=== PATIENT | female | born 1955 ===

== ENCOUNTER 2020-10-29 16:13 | Inpatient (IN) ==
[2020-10-29 17:26] LABS: Albumin 2.9 G/DL (3.4-5.0); Bilirubin,Total 0.4 MG/DL (0.20-1.00); Calcium 6.9 MG/DL (8.5-10.1); Osmolality,Calculated 338.3 MOS/KG (273-304); Total Protein 7.3 G/DL (6.4-8.2)
[2020-10-29 17:41] LABS: ABG Base Excess -17.3 MMOL/L (-2.5-2.5); ABG HCO3 11.6 MMOL/L (20-26); ABG Oxygen Saturation 97.3 % (95-100); ABG PH 7.272 (7.35-7.45); ABG TCO2 7.7 MMOL/L (23-27)
[2020-10-29 17:45] LABS: ABG PCO2 18.2 MM HG (35-48)
[2020-10-29 18:14] LABS: Ferritin 915.6 ng/ml (8-252)
[2020-10-29] MEDS ORDERED: ACETAMINOPHEN 325 MG TABLET PO PRN (18:53)
[2020-10-29] MEDS ORDERED: DEXTROSE 50% 25 GM/50 ML VIAL IV PRN ×2 (18:53)
[2020-10-29] MEDS ORDERED: GLUCAGON 1 MG VIAL IM PRN ×2 (18:53)
[2020-10-29] MEDS ORDERED: ONDANSETRON 4 MG/2 ML VIAL IV PRN (18:53)
[2020-10-29] MEDS ORDERED: SODIUM CHLORIDE 0.9% 500 ML IV STA (18:56)
[2020-10-29] MEDS ORDERED: AZITHROMYCIN INJ 500 MG in SODIUM CHLORIDE 0.9% 250 ML IV ONE (19:53)
[2020-10-29] MEDS ORDERED: MELATONIN 3 MG TABLET PO PRN (20:52)
[2020-10-29] MEDS ORDERED: INSULIN REGULAR 100 UNIT/ML SUBCUT SCH (21:00)
[2020-10-29] MEDS: HEPARIN 5,000 UNIT/1 ML VIAL SUBCUT SCH (23:20)
[2020-10-29] MEDS: FAMOTIDINE 20 MG TABLET PO SCH (23:20)
[2020-10-29] MEDS: ASCORBIC ACID 500 MG TABLET PO SCH (23:20)
[2020-10-29] MEDS: INSULIN REGULAR 100 UNIT/ML SUBCUT SCH (23:20)
[2020-10-29] MEDS: SODIUM BICARB INJ 50 MEQ in SODIUM CHLORIDE 0.45% 1,000 ML IV SCH (23:45)
[2020-10-29] MEDS: cefTRIAXone 1,000 MG in SODIUM CHLORIDE 0.9% 100 ML IV SCH (23:46)
[2020-10-30] MEDS: hydrALAZINE 20 MG/1 ML VIAL IV PRN ×2 (01:40→17:14)
[2020-10-30 05:32] LABS: Calcium 6.7 MG/DL (8.5-10.1); Osmolality,Calculated 341.8 MOS/KG (273-304); Potassium 4.8 MMOL/L (3.5-5.1)
[2020-10-30] MEDS: HEPARIN 5,000 UNIT/1 ML VIAL SUBCUT SCH ×3 (06:24→21:34)
[2020-10-30 07:39] LABS: Basophils % 0.1 % (0.0-0.8); Hematocrit 29.9 VOL% (35.7-47.0); Hemoglobin 9.9 GM/DL (12.0-16.0); Immature Granulocytes % 0.7 %; Immature Granulocytes Absolute 0.07 #; Lymphocytes # 1.3 10*3/uL (1.4-4.0); Lymphocytes % 13.3 % (21.3-54.2); Mean Corpuscular HGB Conc 33.1 GM/DL (32-36); Mean Corpuscular Volume 89.8 FL (87-102); Mean Platelet Volume 10.3 FL (9.6-12.0); Neutrophils % 77.9 % (38.7-73.9); Platelet Count 223 T/CUMM (130-400); Red Blood Count 3.33 MC/CUMM (3.8-5.5); Red Cell Distribution Width 14.6 % (9.3-17.3); White Blood Count 9.6 T/CUMM (4-12)
[2020-10-30 07:59] LABS: Band Neutrophils 2 % (0-10); Hypochromasia Slight; Lymphocytes 13 % (20-55); Microcytosis 1+; Ovalocytes Slight; Segmented Neutrophils 78 % (50-85); Total Cells Counted 100
[2020-10-30 08:00] LABS: Platelet Estimate Normal
[2020-10-30 08:01] LABS: ABG Base Excess -15.8 MMOL/L (-2.5-2.5); ABG HCO3 12.4 MMOL/L (20-26); ABG Oxygen Saturation 98.9 % (95-100); ABG PCO2 22.3 MM HG (35-48); ABG PH 7.262 (7.35-7.45); ABG TCO2 9.3 MMOL/L (23-27)
[2020-10-30] MEDS: INSULIN REGULAR 100 UNIT/ML SUBCUT SCH ×4 (08:04→21:41)
[2020-10-30 08:06] LABS: Albumin 2.6 G/DL (3.4-5.0); Bilirubin,Total 0.4 MG/DL (0.20-1.00); Calcium 6.6 MG/DL (8.5-10.1); Ferritin 785.7 ng/ml (8-252); Osmolality,Calculated 338.8 MOS/KG (273-304); Potassium 4.6 MMOL/L (3.5-5.1); Total Protein 6.7 G/DL (6.4-8.2)
[2020-10-30] MEDS: SODIUM BICARB INJ 50 MEQ in SODIUM CHLORIDE 0.45% 1,000 ML IV SCH ×3 (08:10→22:46)
[2020-10-30] MEDS ORDERED: PANTOPRAZOLE 40 MG TABLET PO SCH (09:00)
[2020-10-30] MEDS: ASCORBIC ACID 500 MG TABLET PO SCH ×2 (09:02→21:34)
[2020-10-30] MEDS: ZINC GLUCONATE 50 MG TABLET PO SCH (09:02)
[2020-10-30] MEDS: CHOLECALCIFEROL 1,000 UNIT TABLET PO SCH (09:02)
[2020-10-30] MEDS: CETIRIZINE 10 MG TABLET PO SCH (09:02)
[2020-10-30] MEDS ORDERED: SODIUM CHLORIDE 0.9% 1,000 ML IV ONE ×2 (09:18→10:55)
[2020-10-30] MEDS: INSULIN GLARGINE 100 UNIT/ML SUBCUT SCH (10:37)
[2020-10-30 13:27] LABS: Osmolality,Calculated 338.4 MOS/KG (273-304); Potassium 4.4 MMOL/L (3.5-5.1)
[2020-10-30] MEDS ORDERED: MAGNESIUM SULF RIDER 4 GM/100 ML PREMIX IV PRN (13:51)
[2020-10-30] MEDS ORDERED: MAGNESIUM SULF RIDER 2 GM/50 ML PREMIX IV PRN (13:51)
[2020-10-30] MEDS ORDERED: CALCIUM GLUCONATE 1,000 MG in SODIUM CHLORIDE 0.9% 100 ML IV ONE (13:56)
[2020-10-30] MEDS: FAMOTIDINE 20 MG TABLET PO SCH ×2 (14:35→21:34)
[2020-10-30] MEDS: IVERMECTIN 3 MG TABLET PO SCH (14:35)
[2020-10-30 17:40] LABS: Calcium 6.1 MG/DL (8.5-10.1); Osmolality,Calculated 331.7 MOS/KG (273-304); Potassium 4.3 MMOL/L (3.5-5.1)
[2020-10-30] MEDS: cefTRIAXone 1,000 MG in SODIUM CHLORIDE 0.9% 100 ML IV SCH (21:31)
[2020-10-30 21:32] LABS: Calcium 6.3 MG/DL (8.5-10.1); Osmolality,Calculated 335.4 MOS/KG (273-304); Potassium 4.3 MMOL/L (3.5-5.1)
[2020-10-31] MEDS: INSULIN REGULAR 100 UNIT/ML SUBCUT SCH ×4 (00:09→17:38)
[2020-10-31 01:33] LABS: Basophils % 0.1 % (0.0-0.8); Hemoglobin 9.3 GM/DL (12.0-16.0); Immature Granulocytes % 1.4 %; Immature Granulocytes Absolute 0.15 #; Lymphocytes # 1.4 10*3/uL (1.4-4.0); Lymphocytes % 13.2 % (21.3-54.2); Mean Corpuscular HGB Conc 32.1 GM/DL (32-36); Mean Corpuscular Volume 92.1 FL (87-102); Mean Platelet Volume 10.2 FL (9.6-12.0); Monocytes % 6.5 % (1.7-12.7); Neutrophils % 78.8 % (38.7-73.9); Platelet Count 221 T/CUMM (130-400); Red Blood Count 3.15 MC/CUMM (3.8-5.5); Red Cell Distribution Width 14.6 % (9.3-17.3); White Blood Count 10.6 T/CUMM (4-12)
[2020-10-31 01:52] LABS: Calcium 6.4 MG/DL (8.5-10.1); Osmolality,Calculated 328.1 MOS/KG (273-304); Potassium 4.2 MMOL/L (3.5-5.1)
[2020-10-31 01:56] LABS: Ferritin 731.3 ng/ml (8-252)
[2020-10-31] MEDS: ALBUTEROL INHALER 18 GM INH SCH ×4 (02:30→19:45)
[2020-10-31 02:51] LABS: ABG Base Excess -15.4 MMOL/L (-2.5-2.5); ABG HCO3 12.5 MMOL/L (20-26); ABG Oxygen Saturation 91.3 % (95-100); ABG PH 7.274 (7.35-7.45); ABG PO2 71.1 MM HG (80-95); ABG TCO2 9.5 MMOL/L (23-27)
[2020-10-31] MEDS: HEPARIN 5,000 UNIT/1 ML VIAL SUBCUT SCH (06:36)
[2020-10-31 07:07] LABS: Calcium 6.3 MG/DL (8.5-10.1); Osmolality,Calculated 338.4 MOS/KG (273-304); Potassium 4.1 MMOL/L (3.5-5.1)
[2020-10-31] MEDS ORDERED: SODIUM BICARBONATE 50 MEQ/50 ML SYRINGE IV ONE (08:31)
[2020-10-31] MEDS ORDERED: amLODIPine 5 MG TABLET PO SCH (09:00)
[2020-10-31] MEDS: INSULIN GLARGINE 100 UNIT/ML SUBCUT SCH (09:36)
[2020-10-31] MEDS ORDERED: LORazepam 2 MG/1 ML VIAL IV ONE (10:00)
[2020-10-31] MEDS: IVERMECTIN 3 MG TABLET PO SCH (10:36)
[2020-10-31] MEDS: FAMOTIDINE 20 MG TABLET PO SCH (10:36)
[2020-10-31] MEDS: CETIRIZINE 10 MG TABLET PO SCH (10:37)
[2020-10-31] MEDS: SODIUM BICARB INJ 50 MEQ in SODIUM CHLORIDE 0.45% 1,000 ML IV SCH (10:37)
[2020-10-31] MEDS: CHOLECALCIFEROL 1,000 UNIT TABLET PO SCH (10:37)
[2020-10-31] MEDS: ASCORBIC ACID 500 MG TABLET PO SCH ×2 (10:37→20:23)
[2020-10-31] MEDS: ZINC GLUCONATE 50 MG TABLET PO SCH (10:37)
[2020-10-31] MEDS ORDERED: FUROSEMIDE 40 MG/4 ML VIAL ONE (12:16)
[2020-10-31] MEDS ORDERED: FUROSEMIDE 40 MG/4 ML VIAL IV ONE (12:20)
[2020-10-31] MEDS ORDERED: MORPHINE 2 MG/1 ML SYRINGE ONE (12:25)
[2020-10-31] MEDS ORDERED: MORPHINE 2 MG/1 ML SYRINGE IV ONE (12:38)
[2020-10-31] MEDS ORDERED: METOPROLOL TARTRATE 5 MG/5 ML VIAL IV ONE ×2 (12:39→12:45)
[2020-10-31] MEDS ORDERED: SODIUM BICARBONATE 50 MEQ/50 ML VIAL IV ONE (12:40)
[2020-10-31 12:47] LABS: ABG Base Excess -17.3 MMOL/L (-2.5-2.5); ABG HCO3 11.4 MMOL/L (20-26); ABG Oxygen Saturation 96.6 % (95-100); ABG PCO2 26.6 MM HG (35-48); ABG TCO2 9.4 MMOL/L (23-27)
[2020-10-31 12:48] LABS: ABG PH 7.183 (7.35-7.45)
[2020-10-31 13:06] LABS: Basophils % 0.1 % (0.0-0.8); Hematocrit 28.1 VOL% (35.7-47.0); Immature Granulocytes % 2.5 %; Immature Granulocytes Absolute 0.39 #; Lymphocytes % 12.6 % (21.3-54.2); Mean Corpuscular Volume 91.8 FL (87-102); Mean Platelet Volume 10.2 FL (9.6-12.0); Monocytes % 5.6 % (1.7-12.7); NRBC # 0.02 10*3/uL; Neutrophils % 79.2 % (38.7-73.9); Platelet Count 241 T/CUMM (130-400); Red Blood Count 3.06 MC/CUMM (3.8-5.5); Red Cell Distribution Width 14.9 % (9.3-17.3); White Blood Count 15.8 T/CUMM (4-12)
[2020-10-31] MEDS ORDERED: ETOMIDATE 20 MG/10 ML VIAL IV ONE ×2 (13:19→13:30)
[2020-10-31] MEDS ORDERED: ROCURONIUM 100 MG/10 ML VIAL IV ONE ×2 (13:19→13:30)
[2020-10-31] MEDS ORDERED: HEPARIN DRIP 25,000 UNITS/500 ML PREMIX IV SCH (13:30)
[2020-10-31 13:36] LABS: Albumin 2.4 G/DL (3.4-5.0); Bilirubin,Total 0.4 MG/DL (0.20-1.00); Calcium 6.5 MG/DL (8.5-10.1); Osmolality,Calculated 346.9 MOS/KG (273-304); Potassium 4.7 MMOL/L (3.5-5.1); Total Protein 6.8 G/DL (6.4-8.2)
[2020-10-31] MEDS: DEXAMETHASONE 4 MG/1 ML VIAL IV SCH (14:02)
[2020-10-31] MEDS: FAMOTIDINE 20 MG/2 ML VIAL IV SCH (14:02)
[2020-10-31 15:03] LABS: ABG Base Excess -13.7 MMOL/L (-2.5-2.5); ABG HCO3 13.9 MMOL/L (20-26); ABG Oxygen Saturation 99.2 % (95-100); ABG PCO2 30.9 MM HG (35-48)
[2020-10-31] MEDS: CLINDAMYCIN INJ 600 MG/50 ML PREMIX IV SCH ×2 (15:53→20:22)
[2020-10-31] MEDS ORDERED: ALBUMIN 25% 25 GM/100 ML VIAL IV ONE (16:13)
[2020-10-31 16:39] LABS: Hepatitis B Core IgM Quant 0.13 Index; Hepatitis B Surface Ag Quant < 0.10 Index; Hepatitis B Surface Ag Result Non-Reactive (NonReactive); Hepatitis C Virus Ab Quant 0.05 Index; Hepatitis C Virus Ab Result Non-Reactive (NonReactive)
[2020-10-31] MEDS ORDERED: HEPARIN 10,000 UNIT/10 ML VIAL IV SCH (16:45)
[2020-10-31] MEDS: cefTRIAXone 1,000 MG in SODIUM CHLORIDE 0.9% 100 ML IV SCH (19:45)
[2020-11-01] MEDS: INSULIN REGULAR 100 UNIT/ML SUBCUT SCH ×5 (00:51→23:58)
[2020-11-01] MEDS: ALBUTEROL INHALER 18 GM INH SCH ×4 (00:52→18:03)
[2020-11-01 02:40] LABS: Bilirubin,Urine Negative (Negative); Blood, Urine Small mg/dL (Negative); Glucose,Urine (UA) 50 mg/dL (Negative); Ketones,Urine Negative (Negative); Mucus,Urine Occasional /LPF (Occasional); Nitrite,Urine Negative (Negative); Protein,Urine 100 MG/DL; RBC,Urine 3 /HPF (0-4); Urine Appearance CLEAR (Clear); Urine Color Straw (Yellow); Urine Specific Gravity 1.009 (1.001-1.035); Urine Urobilinogen < 2.0 EU/DL (0.2-1.0)
[2020-11-01 02:43] LABS: Hematocrit 20.7 VOL% (35.7-47.0); Immature Granulocytes % 0.9 %; Immature Granulocytes Absolute 0.07 #; Lymphocytes # 0.8 10*3/uL (1.4-4.0); Lymphocytes % 9.9 % (21.3-54.2); Mean Corpuscular HGB Conc 33.3 GM/DL (32-36); Mean Platelet Volume 10.9 FL (9.6-12.0); Monocytes % 5.4 % (1.7-12.7); Neutrophils % 83.8 % (38.7-73.9); Red Cell Distribution Width 14.6 % (9.3-17.3)
[2020-11-01 02:44] LABS: Hemoglobin 6.9 GM/DL (12.0-16.0); Platelet Count 147 T/CUMM (130-400); White Blood Count 7.7 T/CUMM (4-12)
[2020-11-01 02:54] LABS: Albumin 2.3 G/DL (3.4-5.0); Bilirubin,Total 0.4 MG/DL (0.20-1.00); Calcium 6.2 MG/DL (8.5-10.1); Osmolality,Calculated 333.6 MOS/KG (273-304); Potassium 3.9 MMOL/L (3.5-5.1); Total Protein 5.6 G/DL (6.4-8.2)
[2020-11-01 03:00] LABS: Ferritin 995.7 ng/ml (8-252)
[2020-11-01] MEDS: CLINDAMYCIN INJ 600 MG/50 ML PREMIX IV SCH ×3 (04:11→21:47)
[2020-11-01 04:50] LABS: ABG HCO3 17.1 MMOL/L (20-26); ABG Oxygen Saturation 99.4 % (95-100); ABG PCO2 27.7 MM HG (35-48); ABG PH 7.356 (7.35-7.45); ABG TCO2 14.7 MMOL/L (23-27)
[2020-11-01] MEDS ORDERED: FAMOTIDINE 20 MG TABLET PO SCH (09:00)
[2020-11-01] MEDS: INSULIN GLARGINE 100 UNIT/ML SUBCUT SCH (09:42)
[2020-11-01] MEDS: ZINC GLUCONATE 50 MG TABLET PO SCH (09:42)
[2020-11-01] MEDS: CHOLECALCIFEROL 1,000 UNIT TABLET PO SCH (09:42)
[2020-11-01] MEDS: CETIRIZINE 10 MG TABLET PO SCH (09:42)
[2020-11-01] MEDS: IVERMECTIN 3 MG TABLET PO SCH (09:42)
[2020-11-01] MEDS: ASCORBIC ACID 500 MG TABLET PO SCH ×2 (09:43→21:06)
[2020-11-01] MEDS: DEXAMETHASONE 4 MG/1 ML VIAL IV SCH (09:43)
[2020-11-01] MEDS ORDERED: CALCIUM GLUCONATE 1,000 MG in SODIUM CHLORIDE 0.9% 100 ML IV ONE (12:00)
[2020-11-01] MEDS: FAMOTIDINE 20 MG/2 ML VIAL IV SCH (13:02)
[2020-11-01 17:55] LABS: Basophils % 0.1 % (0.0-0.8); Hemoglobin 9.7 GM/DL (12.0-16.0); Immature Granulocytes % 1.4 %; Immature Granulocytes Absolute 0.17 #; Lymphocytes # 0.7 10*3/uL (1.4-4.0); Lymphocytes % 6.1 % (21.3-54.2); Mean Corpuscular HGB Conc 32.3 GM/DL (32-36); Mean Corpuscular Volume 90.4 FL (87-102); Mean Platelet Volume 11.1 FL (9.6-12.0); Monocytes % 4.2 % (1.7-12.7); NRBC # 0.02 10*3/uL; Neutrophils % 88.2 % (38.7-73.9); Platelet Count 216 T/CUMM (130-400); Red Blood Count 3.32 MC/CUMM (3.8-5.5); Red Cell Distribution Width 15.4 % (9.3-17.3); White Blood Count 11.9 T/CUMM (4-12)
[2020-11-01] MEDS: cefTRIAXone 1,000 MG in SODIUM CHLORIDE 0.9% 100 ML IV SCH (20:55)
[2020-11-02] MEDS: ALBUTEROL INHALER 18 GM INH SCH ×4 (00:27→18:29)
[2020-11-02 02:53] LABS: Calcium 6.3 MG/DL (8.5-10.1); Osmolality,Calculated 323.4 MOS/KG (273-304); Potassium 4.3 MMOL/L (3.5-5.1)
[2020-11-02] MEDS: CLINDAMYCIN INJ 600 MG/50 ML PREMIX IV SCH ×3 (05:16→20:02)
[2020-11-02] MEDS: INSULIN REGULAR 100 UNIT/ML SUBCUT SCH ×4 (06:20→23:32)
[2020-11-02] MEDS: CETIRIZINE 10 MG TABLET PO SCH (08:31)
[2020-11-02] MEDS: DEXAMETHASONE 4 MG/1 ML VIAL IV SCH (08:31)
[2020-11-02] MEDS: IVERMECTIN 3 MG TABLET PO SCH (08:31)
[2020-11-02] MEDS: ASCORBIC ACID 500 MG TABLET PO SCH ×2 (08:33→20:02)
[2020-11-02] MEDS: ZINC GLUCONATE 50 MG TABLET PO SCH (08:33)
[2020-11-02] MEDS: CHOLECALCIFEROL 1,000 UNIT TABLET PO SCH (08:33)
[2020-11-02] MEDS ORDERED: INSULIN GLARGINE 100 UNIT/ML SUBCUT SCH ×2 (09:00)
[2020-11-02] MEDS: FAMOTIDINE 20 MG/2 ML VIAL IV SCH (12:55)
[2020-11-02 15:02] LABS: ABG Base Excess -4.3 MMOL/L (-2.5-2.5); ABG HCO3 20.8 MMOL/L (20-26); ABG Oxygen Saturation 98.9 % (95-100); ABG PCO2 28.6 MM HG (35-48); ABG PH 7.432 (7.35-7.45); ABG TCO2 17.6 MMOL/L (23-27)
[2020-11-02] MEDS: cefTRIAXone 1,000 MG in SODIUM CHLORIDE 0.9% 100 ML IV SCH (19:40)
[2020-11-03] MEDS: ALBUTEROL INHALER 18 GM INH SCH ×4 (01:45→19:00)
[2020-11-03 02:53] LABS: ABG Base Excess -4.2 MMOL/L (-2.5-2.5); ABG HCO3 18.8 MMOL/L (20-26); ABG PCO2 27.1 MM HG (35-48); ABG PH 7.458 (7.35-7.45); ABG PO2 116.3 MM HG (80-95); ABG TCO2 19.6 MMOL/L (23-27)
[2020-11-03] MEDS: CLINDAMYCIN INJ 600 MG/50 ML PREMIX IV SCH ×3 (04:00→20:36)
[2020-11-03 04:14] LABS: Basophils % 0.1 % (0.0-0.8); Hemoglobin 8.9 GM/DL (12.0-16.0); Immature Granulocytes % 5.8 %; Immature Granulocytes Absolute 0.52 #; Lymphocytes # 0.9 10*3/uL (1.4-4.0); Lymphocytes % 10.3 % (21.3-54.2); Mean Corpuscular Volume 89.7 FL (87-102); Mean Platelet Volume 11.1 FL (9.6-12.0); NRBC # 0.06 10*3/uL; Neutrophils % 78.8 % (38.7-73.9); Platelet Count 194 T/CUMM (130-400); Red Blood Count 3.01 MC/CUMM (3.8-5.5); Red Cell Distribution Width 15.1 % (9.3-17.3)
[2020-11-03 04:34] LABS: Band Neutrophils 2 % (0-10); Hypochromasia 1+; Lymphocytes 10 % (20-55); Microcytosis 1+; Nucleated Red Blood Cells 2 (0-5); Platelet Estimate Adequate; Segmented Neutrophils 83 % (50-85); Total Cells Counted 100
[2020-11-03 04:40] LABS: Alanine Aminotransferase 34 U/L (13-56); Albumin 2.1 G/DL (3.4-5.0); Alkaline Phosphatase 139 U/L (45-117); Aspartate Amino Transferase 29 U/L (0-37); Bilirubin,Total < 0.39 MG/DL (0.20-1.00); Blood Urea Nitrogen 93 MG/DL (7-18); Calcium 6.5 MG/DL (8.5-10.1); Carbon Dioxide 20 MMOL/L (21-32); Estimated Glom Filtration Rate 7 ML/MIN; Ferritin 616.2 ng/ml (8-252); Glucose 327 MG/DL (74-106); Osmolality,Calculated 314.8 MOS/KG (273-304); Potassium 4.5 MMOL/L (3.5-5.1); Sodium 137 MMOL/L (136-145); Total Protein 6.1 G/DL (6.4-8.2)
[2020-11-03] MEDS: INSULIN REGULAR 100 UNIT/ML SUBCUT SCH ×3 (05:11→18:12)
[2020-11-03] MEDS: DEXAMETHASONE 4 MG/1 ML VIAL IV SCH (08:37)
[2020-11-03] MEDS: IVERMECTIN 3 MG TABLET PO SCH (08:37)
[2020-11-03] MEDS: INSULIN GLARGINE 100 UNIT/ML SUBCUT SCH (08:38)
[2020-11-03] MEDS: ZINC GLUCONATE 50 MG TABLET PO SCH (08:38)
[2020-11-03] MEDS: CHOLECALCIFEROL 1,000 UNIT TABLET PO SCH (08:38)
[2020-11-03] MEDS: ASCORBIC ACID 500 MG TABLET PO SCH ×2 (08:38→20:35)
[2020-11-03] MEDS: CETIRIZINE 10 MG TABLET PO SCH (08:39)
[2020-11-03 09:20] LABS: INR 0.9; PT Patient Result 10.4 SECS (10.5-12.0)
[2020-11-03] MEDS: FAMOTIDINE 20 MG/2 ML VIAL IV SCH (14:10)
[2020-11-03] MEDS: HEPARIN 5,000 UNIT/1 ML VIAL SUBCUT SCH ×2 (14:11→22:44)
[2020-11-03] MEDS: cefTRIAXone 1,000 MG in SODIUM CHLORIDE 0.9% 100 ML IV SCH (20:35)
[2020-11-04] MEDS: INSULIN REGULAR 100 UNIT/ML SUBCUT SCH ×4 (00:34→17:18)
[2020-11-04] MEDS: ALBUTEROL INHALER 18 GM INH SCH ×4 (00:34→18:10)
[2020-11-04] MEDS ORDERED: NOREPINEPHRINE 8 MG in SODIUM CHLORIDE 0.9% 242 ML IV PRN (02:47)
[2020-11-04] MEDS ORDERED: NOREPINEPHRINE 4 MG/4 ML VIAL IV ONE (02:48)
[2020-11-04] MEDS: CLINDAMYCIN INJ 600 MG/50 ML PREMIX IV SCH ×3 (04:37→20:42)
[2020-11-04 05:06] LABS: Basophils % 0.1 % (0.0-0.8); Eosinophils # 0.1 10*3/uL (0.0-0.87); Eosinophils % 0.6 % (0.00-10.9); Hematocrit 29.6 VOL% (35.7-47.0); Hemoglobin 9.5 GM/DL (12.0-16.0); Immature Granulocytes % 5.6 %; Immature Granulocytes Absolute 0.58 #; Lymphocytes # 1.6 10*3/uL (1.4-4.0); Lymphocytes % 15.5 % (21.3-54.2); Mean Corpuscular HGB Conc 32.1 GM/DL (32-36); Mean Corpuscular Volume 92.2 FL (87-102); Mean Platelet Volume 11.4 FL (9.6-12.0); Monocytes % 6.4 % (1.7-12.7); NRBC # 0.04 10*3/uL; Neutrophils % 71.8 % (38.7-73.9); Platelet Count 187 T/CUMM (130-400); Red Blood Count 3.21 MC/CUMM (3.8-5.5); Red Cell Distribution Width 15.1 % (9.3-17.3); White Blood Count 10.3 T/CUMM (4-12)
[2020-11-04 05:32] LABS: ABG Base Excess -6.2 MMOL/L (-2.5-2.5); ABG HCO3 17.9 MMOL/L (20-26); ABG Oxygen Saturation 95.8 % (95-100); ABG PCO2 30.5 MM HG (35-48); ABG PH 7.387 (7.35-7.45); ABG PO2 88.5 MM HG (80-95); ABG TCO2 18.9 MMOL/L (23-27)
[2020-11-04 05:50] LABS: Alanine Aminotransferase 35 U/L (13-56); Albumin 2.1 G/DL (3.4-5.0); Alkaline Phosphatase 141 U/L (45-117); Aspartate Amino Transferase 28 U/L (0-37); Bilirubin,Total < 0.39 MG/DL (0.20-1.00); Blood Urea Nitrogen 101 MG/DL (7-18); Calcium 7.1 MG/DL (8.5-10.1); Carbon Dioxide 19 MMOL/L (21-32); Estimated Glom Filtration Rate 7 ML/MIN; Glucose 194 MG/DL (74-106); Osmolality,Calculated 309.8 MOS/KG (273-304); Potassium 4.4 MMOL/L (3.5-5.1); Sodium 137 MMOL/L (136-145); Total Protein 6.6 G/DL (6.4-8.2)
[2020-11-04 05:52] LABS: Ferritin 544.5 ng/ml (8-252)
[2020-11-04] MEDS: HEPARIN 5,000 UNIT/1 ML VIAL SUBCUT SCH ×3 (06:24→22:46)
[2020-11-04] MEDS: ASCORBIC ACID 500 MG TABLET PO SCH ×2 (08:39→20:42)
[2020-11-04] MEDS: INSULIN GLARGINE 100 UNIT/ML SUBCUT SCH (08:39)
[2020-11-04] MEDS: CHOLECALCIFEROL 1,000 UNIT TABLET PO SCH (08:39)
[2020-11-04] MEDS: CETIRIZINE 10 MG TABLET PO SCH (08:39)
[2020-11-04] MEDS: DEXAMETHASONE 4 MG/1 ML VIAL IV SCH (08:39)
[2020-11-04] MEDS: ZINC GLUCONATE 50 MG TABLET PO SCH (08:39)
[2020-11-04 09:34] LABS: Eosinophils 1 % (0-10); Lymphocytes 7 % (20-55); Metamyelocytes 2 %; Myelocytes 2 %; Platelet Estimate Adequate; Polychromasia Slight; Segmented Neutrophils 77 % (50-85); Total Cells Counted 100
[2020-11-04] MEDS: FAMOTIDINE 20 MG/2 ML VIAL IV SCH (13:44)
[2020-11-04] MEDS: cefTRIAXone 1,000 MG in SODIUM CHLORIDE 0.9% 100 ML IV SCH (20:42)
[2020-11-05] MEDS: INSULIN REGULAR 100 UNIT/ML SUBCUT SCH ×4 (00:08→18:00)
[2020-11-05] MEDS: ALBUTEROL INHALER 18 GM INH SCH ×4 (00:10→19:00)
[2020-11-05 04:37] LABS: Basophils % 0.2 % (0.0-0.8); Eosinophils # 0.1 10*3/uL (0.0-0.87); Eosinophils % 0.8 % (0.00-10.9); Hematocrit 29.7 VOL% (35.7-47.0); Hemoglobin 9.4 GM/DL (12.0-16.0); Immature Granulocytes % 5.2 %; Lymphocytes # 1.7 10*3/uL (1.4-4.0); Lymphocytes % 12.4 % (21.3-54.2); Mean Corpuscular HGB Conc 31.6 GM/DL (32-36); Mean Corpuscular Volume 92.8 FL (87-102); Monocytes % 7.5 % (1.7-12.7); NRBC # 0.03 10*3/uL; Neutrophils % 73.9 % (38.7-73.9); Platelet Count 226 T/CUMM (130-400); White Blood Count 13.5 T/CUMM (4-12)
[2020-11-05] MEDS: CLINDAMYCIN INJ 600 MG/50 ML PREMIX IV SCH ×3 (04:41→20:38)
[2020-11-05 04:49] LABS: ABG Base Excess -10.1 MMOL/L (-2.5-2.5); ABG HCO3 14.8 MMOL/L (20-26); ABG Oxygen Saturation 95.9 % (95-100); ABG PH 7.325 (7.35-7.45); ABG PO2 93.8 MM HG (80-95); ABG TCO2 15.7 MMOL/L (23-27)
[2020-11-05 04:58] LABS: Calcium 6.9 MG/DL (8.5-10.1); Osmolality,Calculated 311.8 MOS/KG (273-304); Potassium 4.4 MMOL/L (3.5-5.1)
[2020-11-05 05:04] LABS: Ferritin 506.1 ng/ml (8-252)
[2020-11-05] MEDS: HEPARIN 5,000 UNIT/1 ML VIAL SUBCUT SCH ×3 (05:44→22:15)
[2020-11-05] MEDS: DEXAMETHASONE 4 MG/1 ML VIAL IV SCH (08:06)
[2020-11-05] MEDS: CETIRIZINE 10 MG TABLET PO SCH (08:10)
[2020-11-05] MEDS: ASPIRIN EC 81 MG TABLET PO SCH (08:10)
[2020-11-05] MEDS: ASCORBIC ACID 500 MG TABLET PO SCH ×2 (08:10→20:36)
[2020-11-05] MEDS: ZINC GLUCONATE 50 MG TABLET PO SCH (08:10)
[2020-11-05] MEDS: INSULIN GLARGINE 100 UNIT/ML SUBCUT SCH (08:11)
[2020-11-05] MEDS: CHOLECALCIFEROL 1,000 UNIT TABLET PO SCH (08:12)
[2020-11-05 10:28] LABS: Band Neutrophils 2 % (0-10); Hypochromasia Slight; Lymphocytes 8 % (20-55); Metamyelocytes 1 %; Myelocytes 1 %; Platelet Estimate Normal; Segmented Neutrophils 80 % (50-85); Total Cells Counted 100
[2020-11-05] MEDS: FAMOTIDINE 20 MG/2 ML VIAL IV SCH (12:30)
[2020-11-05] MEDS: LORazepam 2 MG/1 ML VIAL IV PRN (13:12)
[2020-11-05] MEDS: cefTRIAXone 1,000 MG in SODIUM CHLORIDE 0.9% 100 ML IV SCH (20:37)
[2020-11-06] MEDS: INSULIN REGULAR 100 UNIT/ML SUBCUT SCH ×4 (00:28→17:49)
[2020-11-06] MEDS: ALBUTEROL INHALER 18 GM INH SCH ×4 (01:00→18:17)
[2020-11-06 04:40] LABS: Basophils % 0.1 % (0.0-0.8); Eosinophils # 0.1 10*3/uL (0.0-0.87); Eosinophils % 0.5 % (0.00-10.9); Hemoglobin 9.1 GM/DL (12.0-16.0); Immature Granulocytes % 4.9 %; Immature Granulocytes Absolute 0.83 #; Lymphocytes # 1.7 10*3/uL (1.4-4.0); Mean Corpuscular HGB Conc 31.4 GM/DL (32-36); Mean Corpuscular Volume 93.9 FL (87-102); Mean Platelet Volume 10.7 FL (9.6-12.0); Monocytes % 7.2 % (1.7-12.7); Neutrophils % 77.3 % (38.7-73.9); Platelet Count 250 T/CUMM (130-400); Red Blood Count 3.09 MC/CUMM (3.8-5.5); Red Cell Distribution Width 15.1 % (9.3-17.3); White Blood Count 16.9 T/CUMM (4-12)
[2020-11-06 04:51] LABS: Alanine Aminotransferase 27 U/L (13-56); Albumin 2.1 G/DL (3.4-5.0); Alkaline Phosphatase 167 U/L (45-117); Aspartate Amino Transferase 24 U/L (0-37); Bilirubin,Total < 0.39 MG/DL (0.20-1.00); Blood Urea Nitrogen 133 MG/DL (7-18); Calcium 7.5 MG/DL (8.5-10.1); Carbon Dioxide 15 MMOL/L (21-32); Estimated Glom Filtration Rate 5 ML/MIN; Glucose 156 MG/DL (74-106); Osmolality,Calculated 313.2 MOS/KG (273-304); Potassium 4.8 MMOL/L (3.5-5.1); Sodium 134 MMOL/L (136-145); Total Protein 6.9 G/DL (6.4-8.2)
[2020-11-06 04:58] LABS: Band Neutrophils 2 % (0-10); Eosinophils 1 % (0-10); Lymphocytes 11 % (20-55); Platelet Estimate Adequate; Segmented Neutrophils 82 % (50-85); Total Cells Counted 100
[2020-11-06 04:59] LABS: Hypochromasia 1+; Microcytosis 1+
[2020-11-06 05:02] LABS: ABG Base Excess -12.6 MMOL/L (-2.5-2.5); ABG HCO3 14.5 MMOL/L (20-26); ABG Oxygen Saturation 94.7 % (95-100); ABG PCO2 32.4 MM HG (35-48); ABG PH 7.241 (7.35-7.45); ABG PO2 92.3 MM HG (80-95); ABG TCO2 13.1 MMOL/L (23-27)
[2020-11-06] MEDS: CLINDAMYCIN INJ 600 MG/50 ML PREMIX IV SCH ×3 (05:56→21:23)
[2020-11-06] MEDS: HEPARIN 5,000 UNIT/1 ML VIAL SUBCUT SCH ×3 (05:59→21:23)
[2020-11-06] MEDS: ASPIRIN EC 81 MG TABLET PO SCH (09:06)
[2020-11-06] MEDS: ZINC GLUCONATE 50 MG TABLET PO SCH (09:07)
[2020-11-06] MEDS: INSULIN GLARGINE 100 UNIT/ML SUBCUT SCH (09:07)
[2020-11-06] MEDS: CHOLECALCIFEROL 1,000 UNIT TABLET PO SCH (09:07)
[2020-11-06] MEDS: DEXAMETHASONE 4 MG/1 ML VIAL IV SCH (09:07)
[2020-11-06] MEDS: ASCORBIC ACID 500 MG TABLET PO SCH ×2 (09:07→21:24)
[2020-11-06] MEDS: CETIRIZINE 10 MG TABLET PO SCH (09:07)
[2020-11-06] MEDS: SODIUM BICARB INJ 100 MEQ in SODIUM CHLORIDE 0.45% 1,000 ML IV SCH (10:01)
[2020-11-06] MEDS: FAMOTIDINE 20 MG/2 ML VIAL IV SCH (13:52)
[2020-11-06] MEDS: ALPRAZolam 0.5 MG TABLET PO SCH ×2 (15:10→21:23)
[2020-11-07] MEDS: ALBUTEROL INHALER 18 GM INH SCH ×4 (01:00→18:12)
[2020-11-07] MEDS: INSULIN REGULAR 100 UNIT/ML SUBCUT SCH ×4 (01:02→18:12)
[2020-11-07 03:47] LABS: ABG Base Excess -4.8 MMOL/L (-2.5-2.5); ABG HCO3 20.4 MMOL/L (20-26); ABG Oxygen Saturation 96.8 % (95-100); ABG PCO2 35.4 MM HG (35-48); ABG PH 7.361 (7.35-7.45); ABG TCO2 18.6 MMOL/L (23-27)
[2020-11-07] MEDS: CLINDAMYCIN INJ 600 MG/50 ML PREMIX IV SCH ×3 (04:40→20:35)
[2020-11-07] MEDS: LORazepam 2 MG/1 ML VIAL IV PRN (05:00)
[2020-11-07 05:03] LABS: Basophils % 0.1 % (0.0-0.8); Eosinophils # 0.1 10*3/uL (0.0-0.87); Eosinophils % 0.7 % (0.00-10.9); Hemoglobin 8.4 GM/DL (12.0-16.0); Immature Granulocytes % 4.2 %; Immature Granulocytes Absolute 0.63 #; Lymphocytes # 1.2 10*3/uL (1.4-4.0); Lymphocytes % 8.4 % (21.3-54.2); Mean Corpuscular HGB Conc 32.3 GM/DL (32-36); Mean Corpuscular Volume 91.9 FL (87-102); Mean Platelet Volume 11.1 FL (9.6-12.0); Monocytes % 7.2 % (1.7-12.7); Neutrophils % 79.4 % (38.7-73.9); Platelet Count 251 T/CUMM (130-400); Red Blood Count 2.83 MC/CUMM (3.8-5.5); Red Cell Distribution Width 14.9 % (9.3-17.3); White Blood Count 14.9 T/CUMM (4-12)
[2020-11-07 05:23] LABS: Band Neutrophils 1 % (0-10); Eosinophils 2 % (0-10); Hypochromasia 1+; Lymphocytes 6 % (20-55); Microcytosis 1+; Platelet Estimate Adequate; Segmented Neutrophils 87 % (50-85); Total Cells Counted 100
[2020-11-07 05:37] LABS: Bilirubin,Total 0.4 MG/DL (0.20-1.00); Calcium 7.2 MG/DL (8.5-10.1); Potassium 4.6 MMOL/L (3.5-5.1); Total Protein 6.6 G/DL (6.4-8.2)
[2020-11-07] MEDS: HEPARIN 5,000 UNIT/1 ML VIAL SUBCUT SCH ×3 (06:17→22:01)
[2020-11-07] MEDS: SODIUM BICARB INJ 100 MEQ in SODIUM CHLORIDE 0.45% 1,000 ML IV SCH ×2 (06:18→09:15)
[2020-11-07] MEDS: INSULIN GLARGINE 100 UNIT/ML SUBCUT SCH (08:21)
[2020-11-07] MEDS: DEXAMETHASONE 4 MG/1 ML VIAL IV SCH (08:24)
[2020-11-07] MEDS: ASCORBIC ACID 500 MG TABLET PO SCH ×2 (08:25→20:35)
[2020-11-07] MEDS: ALPRAZolam 0.5 MG TABLET PO SCH ×3 (08:25→20:35)
[2020-11-07] MEDS: ASPIRIN CHEW 81 MG TABLET PO SCH (08:25)
[2020-11-07] MEDS: CHOLECALCIFEROL 1,000 UNIT TABLET PO SCH (08:25)
[2020-11-07] MEDS: CETIRIZINE 10 MG TABLET PO SCH (08:25)
[2020-11-07] MEDS: ZINC GLUCONATE 50 MG TABLET PO SCH (08:25)
[2020-11-07] MEDS: FAMOTIDINE 20 MG/2 ML VIAL IV SCH (12:44)
[2020-11-08] MEDS: INSULIN REGULAR 100 UNIT/ML SUBCUT SCH ×4 (00:22→17:13)
[2020-11-08] MEDS: ALBUTEROL INHALER 18 GM INH SCH ×4 (01:00→18:05)
[2020-11-08 03:47] LABS: ABG Base Excess -0.3 MMOL/L (-2.5-2.5); ABG HCO3 24.1 MMOL/L (20-26); ABG Oxygen Saturation 94.6 % (95-100); ABG PCO2 38.6 MM HG (35-48); ABG PH 7.406 (7.35-7.45); ABG PO2 78.3 MM HG (80-95); ABG TCO2 22.7 MMOL/L (23-27)
[2020-11-08 04:53] LABS: Basophils % 0.2 % (0.0-0.8); Eosinophils # 0.1 10*3/uL (0.0-0.87); Eosinophils % 0.7 % (0.00-10.9); Hematocrit 24.2 VOL% (35.7-47.0); Hemoglobin 7.7 GM/DL (12.0-16.0); Immature Granulocytes % 3.5 %; Immature Granulocytes Absolute 0.43 #; Lymphocytes # 1.3 10*3/uL (1.4-4.0); Lymphocytes % 10.8 % (21.3-54.2); Mean Corpuscular HGB Conc 31.8 GM/DL (32-36); Mean Corpuscular Volume 93.8 FL (87-102); Mean Platelet Volume 11.2 FL (9.6-12.0); Monocytes % 7.5 % (1.7-12.7); Neutrophils % 77.3 % (38.7-73.9); Platelet Count 259 T/CUMM (130-400); Red Blood Count 2.58 MC/CUMM (3.8-5.5); Red Cell Distribution Width 14.8 % (9.3-17.3); White Blood Count 12.4 T/CUMM (4-12)
[2020-11-08] MEDS: CLINDAMYCIN INJ 600 MG/50 ML PREMIX IV SCH ×2 (05:01→12:00)
[2020-11-08] MEDS: SODIUM BICARB INJ 100 MEQ in SODIUM CHLORIDE 0.45% 1,000 ML IV SCH ×2 (05:01→08:44)
[2020-11-08 05:19] LABS: Calcium 7.4 MG/DL (8.5-10.1); Osmolality,Calculated 290.1 MOS/KG (273-304); Potassium 4.6 MMOL/L (3.5-5.1)
[2020-11-08] MEDS: HEPARIN 5,000 UNIT/1 ML VIAL SUBCUT SCH ×3 (05:48→21:15)
[2020-11-08] MEDS: INSULIN GLARGINE 100 UNIT/ML SUBCUT SCH (08:06)
[2020-11-08] MEDS: ALPRAZolam 0.5 MG TABLET PO SCH ×3 (08:07→20:18)
[2020-11-08] MEDS: CETIRIZINE 10 MG TABLET PO SCH (08:07)
[2020-11-08] MEDS: ASCORBIC ACID 500 MG TABLET PO SCH ×2 (08:07→20:18)
[2020-11-08] MEDS: DEXAMETHASONE 4 MG/1 ML VIAL IV SCH (08:07)
[2020-11-08] MEDS: ASPIRIN CHEW 81 MG TABLET PO SCH (08:07)
[2020-11-08] MEDS: ZINC GLUCONATE 50 MG TABLET PO SCH (08:07)
[2020-11-08] MEDS: CHOLECALCIFEROL 1,000 UNIT TABLET PO SCH (08:08)
[2020-11-08] MEDS: FAMOTIDINE 20 MG/2 ML VIAL IV SCH (13:18)
[2020-11-08] MEDS ORDERED: LEVOFLOXACIN INJ 750 MG/150 ML PREMIX IV ONE (13:30)
[2020-11-09] MEDS: INSULIN REGULAR 100 UNIT/ML SUBCUT SCH ×4 (00:10→17:04)
[2020-11-09] MEDS: ALBUTEROL INHALER 18 GM INH SCH ×4 (00:10→18:09)
[2020-11-09 04:06] LABS: Basophils % 0.2 % (0.0-0.8); Eosinophils # 0.1 10*3/uL (0.0-0.87); Eosinophils % 0.5 % (0.00-10.9); Hematocrit 23.8 VOL% (35.7-47.0); Hemoglobin 7.4 GM/DL (12.0-16.0); Immature Granulocytes % 2.8 %; Immature Granulocytes Absolute 0.38 #; Lymphocytes # 1.1 10*3/uL (1.4-4.0); Lymphocytes % 8.2 % (21.3-54.2); Mean Corpuscular HGB Conc 31.1 GM/DL (32-36); Mean Corpuscular Volume 94.4 FL (87-102); Mean Platelet Volume 10.5 FL (9.6-12.0); Monocytes % 9.3 % (1.7-12.7); Platelet Count 286 T/CUMM (130-400); Red Blood Count 2.52 MC/CUMM (3.8-5.5); Red Cell Distribution Width 14.6 % (9.3-17.3); White Blood Count 13.4 T/CUMM (4-12)
[2020-11-09 04:32] LABS: Calcium 7.8 MG/DL (8.5-10.1); Osmolality,Calculated 286.7 MOS/KG (273-304); Potassium 5.3 MMOL/L (3.5-5.1)
[2020-11-09 05:00] LABS: Allen Test Positive; Pt O2 Delivery Device Ventilator
[2020-11-09 05:03] LABS: ABG Base Excess -3.6 MMOL/L (-2.5-2.5); ABG HCO3 20.9 MMOL/L (20-26); ABG Oxygen Saturation 96.6 % (95-100); ABG PCO2 35.1 MM HG (35-48); ABG PH 7.393 (7.35-7.45); ABG PO2 97.6 MM HG (80-95)
[2020-11-09] MEDS: HEPARIN 5,000 UNIT/1 ML VIAL SUBCUT SCH ×3 (05:35→21:02)
[2020-11-09] MEDS: DEXAMETHASONE 4 MG/1 ML VIAL IV SCH (08:00)
[2020-11-09] MEDS: ASPIRIN CHEW 81 MG TABLET PO SCH (08:05)
[2020-11-09] MEDS: CETIRIZINE 10 MG TABLET PO SCH (08:06)
[2020-11-09] MEDS: ALPRAZolam 0.5 MG TABLET PO SCH ×3 (08:06→20:45)
[2020-11-09] MEDS: ASCORBIC ACID 500 MG TABLET PO SCH ×2 (08:06→20:45)
[2020-11-09] MEDS: CHOLECALCIFEROL 1,000 UNIT TABLET PO SCH (08:06)
[2020-11-09] MEDS: INSULIN GLARGINE 100 UNIT/ML SUBCUT SCH (08:06)
[2020-11-09] MEDS: ZINC GLUCONATE 50 MG TABLET PO SCH (08:06)
[2020-11-09] MEDS: LORazepam 2 MG/1 ML VIAL IV PRN (10:55)
[2020-11-09] MEDS: FAMOTIDINE 20 MG/2 ML VIAL IV SCH (13:42)
[2020-11-10] MEDS: INSULIN REGULAR 100 UNIT/ML SUBCUT SCH ×5 (00:06→23:36)
[2020-11-10] MEDS: LORazepam 2 MG/1 ML VIAL IV PRN (00:07)
[2020-11-10] MEDS: ALBUTEROL INHALER 18 GM INH SCH ×4 (00:07→18:29)
[2020-11-10 04:16] LABS: ABG Base Excess -5.4 MMOL/L (-2.5-2.5); ABG HCO3 19.9 MMOL/L (20-26); ABG Oxygen Saturation 96.8 % (95-100); ABG PCO2 36.3 MM HG (35-48); ABG PH 7.344 (7.35-7.45); ABG PO2 98.4 MM HG (80-95); ABG TCO2 18.7 MMOL/L (23-27); Allen Test Positive; Pt O2 Delivery Device Ventilator
[2020-11-10 04:33] LABS: Basophils % 0.1 % (0.0-0.8); Eosinophils # 0.1 10*3/uL (0.0-0.87); Eosinophils % 0.4 % (0.00-10.9); Hematocrit 23.1 VOL% (35.7-47.0); Hemoglobin 7.2 GM/DL (12.0-16.0); Immature Granulocytes % 3.6 %; Immature Granulocytes Absolute 0.65 #; Lymphocytes # 1.5 10*3/uL (1.4-4.0); Lymphocytes % 8.5 % (21.3-54.2); Mean Corpuscular HGB Conc 31.2 GM/DL (32-36); Mean Corpuscular Volume 95.9 FL (87-102); Mean Platelet Volume 9.9 FL (9.6-12.0); Neutrophils % 80.4 % (38.7-73.9); Platelet Count 324 T/CUMM (130-400); Red Blood Count 2.41 MC/CUMM (3.8-5.5); Red Cell Distribution Width 14.7 % (9.3-17.3)
[2020-11-10 04:57] LABS: Band Neutrophils 1 % (0-10); Eosinophils 1 % (0-10); Hypochromasia 1+; Lymphocytes 6 % (20-55); Segmented Neutrophils 81 % (50-85); Total Cells Counted 100
[2020-11-10 04:58] LABS: Microcytosis 1+; Platelet Estimate Normal
[2020-11-10 05:03] LABS: Calcium 8.3 MG/DL (8.5-10.1); Osmolality,Calculated 290.5 MOS/KG (273-304); Potassium 5.3 MMOL/L (3.5-5.1)
[2020-11-10] MEDS: HEPARIN 5,000 UNIT/1 ML VIAL SUBCUT SCH ×3 (05:27→21:52)
[2020-11-10] MEDS: CHOLECALCIFEROL 1,000 UNIT TABLET PO SCH (08:55)
[2020-11-10] MEDS: ASCORBIC ACID 500 MG TABLET PO SCH ×2 (08:55→20:37)
[2020-11-10] MEDS: CETIRIZINE 10 MG TABLET PO SCH (08:56)
[2020-11-10] MEDS: ZINC GLUCONATE 50 MG TABLET PO SCH (08:56)
[2020-11-10] MEDS: ASPIRIN CHEW 81 MG TABLET PO SCH (08:56)
[2020-11-10] MEDS: ALPRAZolam 0.5 MG TABLET PO SCH ×3 (08:56→20:37)
[2020-11-10] MEDS: INSULIN GLARGINE 100 UNIT/ML SUBCUT SCH (08:56)
[2020-11-10] MEDS: SULFAMETHOX/TRIMETHOPRIM 200-40 MG/5 ML -20 ML UDCUP PER TUBE SCH (09:32)
[2020-11-10] MEDS: hydrALAZINE 20 MG/1 ML VIAL IV PRN (12:06)
[2020-11-10 12:19] LABS: ABG Base Excess 1.3 MMOL/L (-2.5-2.5); ABG HCO3 28.5 MMOL/L (20-26); ABG Oxygen Saturation 95.6 % (95-100); ABG PCO2 61.7 MM HG (35-48); ABG PH 7.283 (7.35-7.45); ABG TCO2 30.4 MMOL/L (23-27)
[2020-11-10] MEDS ORDERED: ETOMIDATE 20 MG/10 ML VIAL IV ONE ×2 (12:24→12:29)
[2020-11-10] MEDS ORDERED: SUCCINYLCHOLINE 200 MG/10 ML VIAL ONE (12:24)
[2020-11-10] MEDS ORDERED: SUCCINYLCHOLINE 200 MG/10 ML VIAL IV ONE ×3 (12:29→12:31)
[2020-11-10] MEDS: FAMOTIDINE 20 MG/2 ML VIAL IV SCH (13:10)
[2020-11-10] MEDS ORDERED: LEVOFLOXACIN INJ 500 MG/100 ML PREMIX IV SCH (13:30)
[2020-11-10] MEDS: methylPREDNISolone SOD SUC 40 MG/1 ML VIAL IV SCH (14:26)
[2020-11-10] MEDS: MIDAZOLAM 100 MG in SODIUM CHLORIDE 0.9% 80 ML IV PRN (17:13)
[2020-11-11] MEDS: ALBUTEROL INHALER 18 GM INH SCH ×4 (01:42→19:06)
[2020-11-11] MEDS: methylPREDNISolone SOD SUC 40 MG/1 ML VIAL IV SCH ×2 (01:47→15:37)
[2020-11-11 03:27] LABS: Basophils % 0.2 % (0.0-0.8); Eosinophils % 0.2 % (0.00-10.9); Hematocrit 21.1 VOL% (35.7-47.0); Immature Granulocytes % 2.4 %; Immature Granulocytes Absolute 0.48 #; Lymphocytes % 5.3 % (21.3-54.2); Mean Corpuscular HGB Conc 29.9 GM/DL (32-36); Mean Corpuscular Volume 98.1 FL (87-102); Mean Platelet Volume 9.9 FL (9.6-12.0); Neutrophils % 85.9 % (38.7-73.9); Platelet Count 374 T/CUMM (130-400); Red Blood Count 2.15 MC/CUMM (3.8-5.5); Red Cell Distribution Width 14.6 % (9.3-17.3); White Blood Count 19.7 T/CUMM (4-12)
[2020-11-11 03:51] LABS: Hemoglobin 6.3 GM/DL (12.0-16.0)
[2020-11-11 04:01] LABS: Osmolality,Calculated 298.7 MOS/KG (273-304)
[2020-11-11 04:01] LABS: ABG Base Excess -8.4 MMOL/L (-2.5-2.5); ABG HCO3 17.5 MMOL/L (20-26); ABG Oxygen Saturation 96.5 % (95-100); ABG PCO2 37.3 MM HG (35-48); ABG PH 7.282 (7.35-7.45); ABG TCO2 16.9 MMOL/L (23-27)
[2020-11-11 04:21] LABS: Potassium 6.8 MMOL/L (3.5-5.1)
[2020-11-11] MEDS ORDERED: SODIUM POLYSTYRENE SULFATE 15 GM/60 ML BOTTLE PO ONE (05:18)
[2020-11-11] MEDS: HEPARIN 5,000 UNIT/1 ML VIAL SUBCUT SCH ×3 (05:38→21:17)
[2020-11-11] MEDS: INSULIN REGULAR 100 UNIT/ML SUBCUT SCH ×3 (05:54→19:05)
[2020-11-11 07:21] LABS: Band Neutrophils 1 % (0-10); Hypochromasia 1+; Lymphocytes 4 % (20-55); Microcytosis 1+; Platelet Estimate Adequate; Segmented Neutrophils 90 % (50-85); Total Cells Counted 100
[2020-11-11] MEDS ORDERED: SODIUM CHLORIDE 0.9% 1,000 ML IV PRN (08:11)
[2020-11-11] MEDS ORDERED: SODIUM BICARBONATE 50 MEQ/50 ML VIAL IV ONE (08:24)
[2020-11-11] MEDS: CETIRIZINE 10 MG TABLET PO SCH (08:39)
[2020-11-11] MEDS: CHOLECALCIFEROL 1,000 UNIT TABLET PO SCH (08:40)
[2020-11-11] MEDS: ASPIRIN CHEW 81 MG TABLET PO SCH (08:40)
[2020-11-11] MEDS: ASCORBIC ACID 500 MG TABLET PO SCH ×2 (08:40→21:17)
[2020-11-11] MEDS: ALPRAZolam 0.5 MG TABLET PO SCH ×3 (08:41→21:17)
[2020-11-11] MEDS: ZINC GLUCONATE 50 MG TABLET PO SCH (08:41)
[2020-11-11] MEDS: INSULIN GLARGINE 100 UNIT/ML SUBCUT SCH (08:43)
[2020-11-11] MEDS: SULFAMETHOX/TRIMETHOPRIM 200-40 MG/5 ML -20 ML UDCUP PER TUBE SCH (09:10)
[2020-11-11] MEDS: FAMOTIDINE 20 MG/2 ML VIAL IV SCH (15:37)
[2020-11-11] MEDS: hydrALAZINE 20 MG/1 ML VIAL IV PRN (16:30)
[2020-11-12] MEDS: INSULIN REGULAR 100 UNIT/ML SUBCUT SCH ×5 (00:08→23:55)
[2020-11-12] MEDS: ALBUTEROL INHALER 18 GM INH SCH ×4 (00:08→18:23)
[2020-11-12] MEDS: methylPREDNISolone SOD SUC 40 MG/1 ML VIAL IV SCH ×2 (02:18→14:55)
[2020-11-12 04:42] LABS: ABG Base Excess -1.5 MMOL/L (-2.5-2.5); ABG HCO3 22.9 MMOL/L (20-26); ABG Oxygen Saturation 97.5 % (95-100); ABG PCO2 36.8 MM HG (35-48); ABG PH 7.411 (7.35-7.45); ABG PO2 121.2 MM HG (80-95); Allen Test Positive; Pt O2 Delivery Device Ventilator
[2020-11-12 05:20] LABS: Basophils % 0.2 % (0.0-0.8); Eosinophils % 0.2 % (0.00-10.9); Immature Granulocytes % 2.3 %; Immature Granulocytes Absolute 0.28 #; Lymphocytes # 0.9 10*3/uL (1.4-4.0); Lymphocytes % 7.6 % (21.3-54.2); Mean Corpuscular HGB Conc 31.7 GM/DL (32-36); Mean Corpuscular Volume 93.2 FL (87-102); Mean Platelet Volume 9.9 FL (9.6-12.0); Monocytes % 7.1 % (1.7-12.7); Neutrophils % 82.6 % (38.7-73.9); Platelet Count 348 T/CUMM (130-400); Red Cell Distribution Width 15.1 % (9.3-17.3)
[2020-11-12 05:23] LABS: Hemoglobin 9.2 GM/DL (12.0-16.0); Red Blood Count 3.11 MC/CUMM (3.8-5.5); White Blood Count 12.4 T/CUMM (4-12)
[2020-11-12 05:36] LABS: Osmolality,Calculated 305.7 MOS/KG (273-304); Potassium 5.1 MMOL/L (3.5-5.1)
[2020-11-12] MEDS: MIDAZOLAM 100 MG in SODIUM CHLORIDE 0.9% 80 ML IV PRN (05:38)
[2020-11-12] MEDS: HEPARIN 5,000 UNIT/1 ML VIAL SUBCUT SCH ×3 (05:38→21:25)
[2020-11-12 07:05] LABS: Band Neutrophils 1 % (0-10); Hypochromasia 1+; Lymphocytes 13 % (20-55); Microcytosis 1+; Platelet Estimate Adequate; Segmented Neutrophils 79 % (50-85); Total Cells Counted 100
[2020-11-12] MEDS: ASCORBIC ACID 500 MG TABLET PO SCH ×2 (08:21→20:46)
[2020-11-12] MEDS: CETIRIZINE 10 MG TABLET PO SCH (08:21)
[2020-11-12] MEDS: CHOLECALCIFEROL 1,000 UNIT TABLET PO SCH (08:21)
[2020-11-12] MEDS: ASPIRIN CHEW 81 MG TABLET PO SCH (08:21)
[2020-11-12] MEDS: ALPRAZolam 0.5 MG TABLET PO SCH ×3 (08:21→20:46)
[2020-11-12] MEDS: ZINC GLUCONATE 50 MG TABLET PO SCH (08:21)
[2020-11-12] MEDS: INSULIN GLARGINE 100 UNIT/ML SUBCUT SCH (08:22)
[2020-11-12] MEDS: SULFAMETHOX/TRIMETHOPRIM 200-40 MG/5 ML -20 ML UDCUP PER TUBE SCH (09:02)
[2020-11-12] MEDS: FAMOTIDINE 20 MG/2 ML VIAL IV SCH (12:59)
[2020-11-12] MEDS: fentaNYL INJ 2,500 MCG in SODIUM CHLORIDE 0.9% 75 ML IV PRN (22:25)
[2020-11-13] MEDS: ALBUTEROL INHALER 18 GM INH SCH ×4 (00:06→18:00)
[2020-11-13] MEDS: methylPREDNISolone SOD SUC 40 MG/1 ML VIAL IV SCH ×2 (01:58→14:00)
[2020-11-13 03:42] LABS: ABG Base Excess -3.8 MMOL/L (-2.5-2.5); ABG HCO3 21.2 MMOL/L (20-26); ABG Oxygen Saturation 97.9 % (95-100); ABG PCO2 36.1 MM HG (35-48); ABG PH 7.371 (7.35-7.45); ABG TCO2 19.5 MMOL/L (23-27)
[2020-11-13] MEDS: MIDAZOLAM 100 MG in SODIUM CHLORIDE 0.9% 80 ML IV PRN ×2 (04:25→20:48)
[2020-11-13 06:07] LABS: Basophils % 0.2 % (0.0-0.8); Hematocrit 27.6 VOL% (35.7-47.0); Hemoglobin 8.7 GM/DL (12.0-16.0); Immature Granulocytes % 1.4 %; Immature Granulocytes Absolute 0.14 #; Lymphocytes # 0.8 10*3/uL (1.4-4.0); Lymphocytes % 8.3 % (21.3-54.2); Mean Corpuscular HGB Conc 31.5 GM/DL (32-36); Mean Corpuscular Volume 93.9 FL (87-102); Mean Platelet Volume 9.4 FL (9.6-12.0); Monocytes % 6.7 % (1.7-12.7); Neutrophils % 83.4 % (38.7-73.9); Platelet Count 330 T/CUMM (130-400); Red Blood Count 2.94 MC/CUMM (3.8-5.5); Red Cell Distribution Width 14.8 % (9.3-17.3); White Blood Count 9.9 T/CUMM (4-12)
[2020-11-13] MEDS: INSULIN REGULAR 100 UNIT/ML SUBCUT SCH ×3 (06:17→17:55)
[2020-11-13] MEDS: HEPARIN 5,000 UNIT/1 ML VIAL SUBCUT SCH ×3 (06:17→21:33)
[2020-11-13 06:35] LABS: Calcium 8.1 MG/DL (8.5-10.1); Osmolality,Calculated 321.7 MOS/KG (273-304)
[2020-11-13 06:54] LABS: Potassium 6.3 MMOL/L (3.5-5.1)
[2020-11-13] MEDS ORDERED: INSULIN REGULAR 10 UNIT, CALCIUM GLUCONATE 1,000 MG in DEXTROSE 10% 250 ML IV ONE (08:00)
[2020-11-13] MEDS: ASPIRIN CHEW 81 MG TABLET PO SCH (08:07)
[2020-11-13] MEDS: SULFAMETHOX/TRIMETHOPRIM 200-40 MG/5 ML -20 ML UDCUP PER TUBE SCH (08:07)
[2020-11-13] MEDS: ASCORBIC ACID 500 MG TABLET PO SCH ×2 (08:07→20:47)
[2020-11-13] MEDS: INSULIN GLARGINE 100 UNIT/ML SUBCUT SCH (08:07)
[2020-11-13] MEDS: CETIRIZINE 10 MG TABLET PO SCH (08:08)
[2020-11-13] MEDS: CHOLECALCIFEROL 1,000 UNIT TABLET PO SCH (08:08)
[2020-11-13] MEDS: ZINC GLUCONATE 50 MG TABLET PO SCH (08:08)
[2020-11-13] MEDS: ALPRAZolam 0.5 MG TABLET PO SCH ×3 (08:08→20:47)
[2020-11-13] MEDS: FAMOTIDINE 20 MG/2 ML VIAL IV SCH (12:40)
[2020-11-13] MEDS: fentaNYL INJ 2,500 MCG in SODIUM CHLORIDE 0.9% 75 ML IV PRN (14:19)
[2020-11-14] MEDS: methylPREDNISolone SOD SUC 40 MG/1 ML VIAL IV SCH ×2 (02:26→13:22)
[2020-11-14 04:35] LABS: Basophils % 0.2 % (0.0-0.8); Eosinophils # 0.1 10*3/uL (0.0-0.87); Eosinophils % 0.7 % (0.00-10.9); Hematocrit 31.7 VOL% (35.7-47.0); Hemoglobin 9.8 GM/DL (12.0-16.0); Immature Granulocytes % 1.8 %; Immature Granulocytes Absolute 0.23 #; Lymphocytes # 1.4 10*3/uL (1.4-4.0); Lymphocytes % 10.8 % (21.3-54.2); Mean Corpuscular HGB Conc 30.9 GM/DL (32-36); Mean Corpuscular Volume 95.8 FL (87-102); Mean Platelet Volume 9.5 FL (9.6-12.0); Monocytes % 6.1 % (1.7-12.7); Neutrophils % 80.4 % (38.7-73.9); Platelet Count 373 T/CUMM (130-400); Red Blood Count 3.31 MC/CUMM (3.8-5.5); Red Cell Distribution Width 14.6 % (9.3-17.3); White Blood Count 12.8 T/CUMM (4-12)
[2020-11-14 04:52] LABS: Calcium 8.5 MG/DL (8.5-10.1); Osmolality,Calculated 308.2 MOS/KG (273-304); Potassium 5.4 MMOL/L (3.5-5.1)
[2020-11-14 05:22] LABS: ABG Base Excess -5.4 MMOL/L (-2.5-2.5); ABG HCO3 19.9 MMOL/L (20-26); ABG Oxygen Saturation 94.9 % (95-100); ABG PCO2 38.9 MM HG (35-48); ABG PH 7.323 (7.35-7.45); ABG PO2 91.5 MM HG (80-95); ABG TCO2 18.3 MMOL/L (23-27); Allen Test Positive; Pt O2 Delivery Device Ventilator
[2020-11-14] MEDS: HEPARIN 5,000 UNIT/1 ML VIAL SUBCUT SCH ×3 (06:02→21:19)
[2020-11-14] MEDS: INSULIN REGULAR 100 UNIT/ML SUBCUT SCH ×4 (06:02→17:33)
[2020-11-14] MEDS: ALBUTEROL INHALER 18 GM INH SCH ×4 (06:03→18:27)
[2020-11-14] MEDS: CETIRIZINE 10 MG TABLET PO SCH (08:37)
[2020-11-14] MEDS: ASCORBIC ACID 500 MG TABLET PO SCH ×2 (08:37→20:15)
[2020-11-14] MEDS: CHOLECALCIFEROL 1,000 UNIT TABLET PO SCH (08:37)
[2020-11-14] MEDS: SULFAMETHOX/TRIMETHOPRIM 200-40 MG/5 ML -20 ML UDCUP PER TUBE SCH (08:37)
[2020-11-14] MEDS: ZINC GLUCONATE 50 MG TABLET PO SCH (08:37)
[2020-11-14] MEDS: INSULIN GLARGINE 100 UNIT/ML SUBCUT SCH (08:37)
[2020-11-14] MEDS: ASPIRIN CHEW 81 MG TABLET PO SCH (08:37)
[2020-11-14] MEDS: fentaNYL INJ 2,500 MCG in SODIUM CHLORIDE 0.9% 75 ML IV PRN (08:51)
[2020-11-14] MEDS: MIDAZOLAM 100 MG in SODIUM CHLORIDE 0.9% 80 ML IV PRN (11:22)
[2020-11-14] MEDS: FAMOTIDINE 20 MG/2 ML VIAL IV SCH (13:20)
[2020-11-14] MEDS ORDERED: SODIUM POLYSTYRENE SULFATE 15 GM/60 ML BOTTLE PO ONE (14:32)
[2020-11-14] MEDS: fentaNYL INJ 5,000 MCG in SODIUM CHLORIDE 0.9% 150 ML IV PRN (17:06)
[2020-11-15] MEDS: INSULIN REGULAR 100 UNIT/ML SUBCUT SCH ×4 (01:00→17:19)
[2020-11-15] MEDS: ALBUTEROL INHALER 18 GM INH SCH ×4 (01:01→18:22)
[2020-11-15] MEDS: methylPREDNISolone SOD SUC 40 MG/1 ML VIAL IV SCH ×2 (01:03→13:28)
[2020-11-15] MEDS: MIDAZOLAM 100 MG in SODIUM CHLORIDE 0.9% 80 ML IV PRN ×2 (01:52→17:20)
[2020-11-15 04:28] LABS: Allen Test Positive; Pt O2 Delivery Device Ventilator
[2020-11-15 04:42] LABS: ABG Base Excess -6.6 MMOL/L (-2.5-2.5); ABG HCO3 18.3 MMOL/L (20-26); ABG Oxygen Saturation 97.1 % (95-100); ABG PH 7.348 (7.35-7.45); ABG PO2 112.7 MM HG (80-95); ABG TCO2 19.3 MMOL/L (23-27)
[2020-11-15] MEDS: HEPARIN 5,000 UNIT/1 ML VIAL SUBCUT SCH ×3 (05:32→21:40)
[2020-11-15 06:01] LABS: Basophils % 0.2 % (0.0-0.8); Eosinophils % 0.1 % (0.00-10.9); Hematocrit 27.7 VOL% (35.7-47.0); Hemoglobin 8.5 GM/DL (12.0-16.0); Immature Granulocytes % 1.5 %; Immature Granulocytes Absolute 0.16 #; Lymphocytes # 0.8 10*3/uL (1.4-4.0); Lymphocytes % 6.8 % (21.3-54.2); Mean Corpuscular HGB Conc 30.7 GM/DL (32-36); Mean Corpuscular Volume 95.5 FL (87-102); Mean Platelet Volume 9.5 FL (9.6-12.0); Monocytes % 4.8 % (1.7-12.7); Neutrophils % 86.6 % (38.7-73.9); Platelet Count 346 T/CUMM (130-400); Red Cell Distribution Width 14.4 % (9.3-17.3)
[2020-11-15 06:11] LABS: Calcium 8.1 MG/DL (8.5-10.1); Osmolality,Calculated 314.4 MOS/KG (273-304)
[2020-11-15 06:14] LABS: Potassium 6.6 MMOL/L (3.5-5.1)
[2020-11-15] MEDS: SULFAMETHOX/TRIMETHOPRIM 200-40 MG/5 ML -20 ML UDCUP PER TUBE SCH ×2 (08:14→10:28)
[2020-11-15] MEDS: INSULIN GLARGINE 100 UNIT/ML SUBCUT SCH (08:14)
[2020-11-15] MEDS: ASPIRIN CHEW 81 MG TABLET PO SCH (08:14)
[2020-11-15] MEDS: ZINC GLUCONATE 50 MG TABLET PO SCH (08:15)
[2020-11-15] MEDS: ASCORBIC ACID 500 MG TABLET PO SCH ×2 (08:15→20:59)
[2020-11-15] MEDS: CHOLECALCIFEROL 1,000 UNIT TABLET PO SCH (08:15)
[2020-11-15] MEDS: CETIRIZINE 10 MG TABLET PO SCH (08:15)
[2020-11-15] MEDS ORDERED: CALCIUM CHLORIDE 1,000 MG/10 ML SYRINGE IV ONE (09:38)
[2020-11-15] MEDS ORDERED: CALCIUM GLUCONATE 1,000 MG in SODIUM CHLORIDE 0.9% 100 ML IV ONE (10:00)
[2020-11-15] MEDS: fentaNYL INJ 5,000 MCG in SODIUM CHLORIDE 0.9% 150 ML IV PRN (10:42)
[2020-11-15] MEDS: FAMOTIDINE 20 MG/2 ML VIAL IV SCH (13:28)
[2020-11-16] MEDS: ALBUTEROL INHALER 18 GM INH SCH ×4 (00:03→18:05)
[2020-11-16] MEDS: INSULIN REGULAR 100 UNIT/ML SUBCUT SCH ×4 (00:03→17:02)
[2020-11-16] MEDS: methylPREDNISolone SOD SUC 40 MG/1 ML VIAL IV SCH ×2 (02:50→13:30)
[2020-11-16 04:31] LABS: ABG Base Excess -2.7 MMOL/L (-2.5-2.5); ABG HCO3 20.7 MMOL/L (20-26); ABG Oxygen Saturation 95.9 % (95-100); ABG PCO2 30.4 MM HG (35-48); ABG PO2 90.3 MM HG (80-95); ABG TCO2 21.6 MMOL/L (23-27)
[2020-11-16] MEDS: fentaNYL INJ 5,000 MCG in SODIUM CHLORIDE 0.9% 150 ML IV PRN (05:22)
[2020-11-16 05:42] LABS: Basophils % 0.2 % (0.0-0.8); Eosinophils % 0.3 % (0.00-10.9); Hematocrit 27.7 VOL% (35.7-47.0); Hemoglobin 8.7 GM/DL (12.0-16.0); Immature Granulocytes % 2.5 %; Immature Granulocytes Absolute 0.31 #; Lymphocytes # 1.3 10*3/uL (1.4-4.0); Lymphocytes % 10.2 % (21.3-54.2); Mean Corpuscular HGB Conc 31.4 GM/DL (32-36); Mean Platelet Volume 9.6 FL (9.6-12.0); Monocytes % 6.4 % (1.7-12.7); Neutrophils % 80.4 % (38.7-73.9); Platelet Count 381 T/CUMM (130-400); Red Blood Count 2.98 MC/CUMM (3.8-5.5); Red Cell Distribution Width 14.3 % (9.3-17.3); White Blood Count 12.6 T/CUMM (4-12)
[2020-11-16 05:59] LABS: Calcium 7.7 MG/DL (8.5-10.1); Osmolality,Calculated 301.1 MOS/KG (273-304); Potassium 5.8 MMOL/L (3.5-5.1)
[2020-11-16 06:01] LABS: Albumin 1.9 G/DL (3.4-5.0); Bilirubin,Total 1.8 MG/DL (0.20-1.00); Calcium 8.2 MG/DL (8.5-10.1); Osmolality,Calculated 294.5 MOS/KG (273-304); Potassium 5.7 MMOL/L (3.5-5.1); Total Protein 6.6 G/DL (6.4-8.2)
[2020-11-16] MEDS: MIDAZOLAM 100 MG in SODIUM CHLORIDE 0.9% 80 ML IV PRN ×2 (07:30→20:18)
[2020-11-16] MEDS: PANTOPRAZOLE 40 MG VIAL IV SCH (08:37)
[2020-11-16] MEDS ORDERED: ROCURONIUM 50 MG/5 ML VIAL IV ONE ×2 (10:00→12:30)
[2020-11-16] MEDS ORDERED: MIDAZOLAM 2 MG/2 ML VIAL ONE ×2 (10:00→12:39)
[2020-11-16] MEDS ORDERED: BUPIVACAINE MPF 0.25% 30 ML VIAL ONE (10:00)
[2020-11-16] MEDS ORDERED: HEPARIN 5,000 UNIT/1 ML VIAL ONE ×2 (10:00→10:05)
[2020-11-16] MEDS ORDERED: LIDOCAINE 1%/EPI INJ 20 ML VIAL ONE (10:01)
[2020-11-16] MEDS: ASPIRIN CHEW 81 MG TABLET PO SCH (10:08)
[2020-11-16] MEDS: INSULIN GLARGINE 100 UNIT/ML SUBCUT SCH (10:08)
[2020-11-16] MEDS: ZINC GLUCONATE 50 MG TABLET PO SCH (10:09)
[2020-11-16] MEDS: CETIRIZINE 10 MG TABLET PO SCH (10:09)
[2020-11-16] MEDS: ASCORBIC ACID 500 MG TABLET PO SCH ×2 (10:09→20:31)
[2020-11-16] MEDS: CHOLECALCIFEROL 1,000 UNIT TABLET PO SCH (10:09)
[2020-11-16] MEDS: SULFAMETHOX/TRIMETHOPRIM 200-40 MG/5 ML -20 ML UDCUP PER TUBE SCH (13:22)
[2020-11-16] MEDS ORDERED: SODIUM POLYSTYRENE SULFATE 15 GM/60 ML BOTTLE PO ONE (13:27)
[2020-11-17] MEDS: INSULIN REGULAR 100 UNIT/ML SUBCUT SCH ×5 (00:55→23:52)
[2020-11-17] MEDS: ALBUTEROL INHALER 18 GM INH SCH ×4 (00:55→18:08)
[2020-11-17] MEDS: methylPREDNISolone SOD SUC 40 MG/1 ML VIAL IV SCH ×2 (01:00→13:20)
[2020-11-17] MEDS: fentaNYL INJ 5,000 MCG in SODIUM CHLORIDE 0.9% 150 ML IV PRN ×2 (01:28→22:11)
[2020-11-17 03:36] LABS: ABG Base Excess -8.5 MMOL/L (-2.5-2.5); ABG HCO3 16.7 MMOL/L (20-26); ABG Oxygen Saturation 97.2 % (95-100); ABG PH 7.322 (7.35-7.45); ABG PO2 115.4 MM HG (80-95); ABG TCO2 17.7 MMOL/L (23-27)
[2020-11-17 05:12] LABS: Basophils % 0.2 % (0.0-0.8); Eosinophils % 0.1 % (0.00-10.9); Hematocrit 25.9 VOL% (35.7-47.0); Hemoglobin 8.3 GM/DL (12.0-16.0); Immature Granulocytes % 1.4 %; Immature Granulocytes Absolute 0.25 #; Lymphocytes # 0.8 10*3/uL (1.4-4.0); Lymphocytes % 4.7 % (21.3-54.2); Mean Corpuscular Volume 93.8 FL (87-102); Mean Platelet Volume 9.7 FL (9.6-12.0); Monocytes % 3.8 % (1.7-12.7); Neutrophils % 89.8 % (38.7-73.9); Platelet Count 355 T/CUMM (130-400); Red Blood Count 2.76 MC/CUMM (3.8-5.5); Red Cell Distribution Width 14.2 % (9.3-17.3); White Blood Count 17.4 T/CUMM (4-12)
[2020-11-17 05:37] LABS: Hypochromasia 1+; Lymphocytes 2 % (20-55); Microcytosis 1+; Platelet Estimate Adequate; Segmented Neutrophils 94 % (50-85); Total Cells Counted 100
[2020-11-17 05:44] LABS: Calcium 7.7 MG/DL (8.5-10.1); Osmolality,Calculated 309.4 MOS/KG (273-304); Potassium 5.9 MMOL/L (3.5-5.1)
[2020-11-17 05:48] LABS: Ferritin 595.1 ng/mL (8-252)
[2020-11-17 06:01] LABS: Calcium 7.7 MG/DL (8.5-10.1); Osmolality,Calculated 309.4 MOS/KG (273-304); Potassium 5.9 MMOL/L (3.5-5.1)
[2020-11-17] MEDS: ASCORBIC ACID 500 MG TABLET PO SCH ×2 (08:23→20:07)
[2020-11-17] MEDS: CETIRIZINE 10 MG TABLET PO SCH (08:23)
[2020-11-17] MEDS: CHOLECALCIFEROL 1,000 UNIT TABLET PO SCH (08:23)
[2020-11-17] MEDS: PANTOPRAZOLE 40 MG VIAL IV SCH (08:23)
[2020-11-17] MEDS: ZINC GLUCONATE 50 MG TABLET PO SCH (08:23)
[2020-11-17] MEDS: INSULIN GLARGINE 100 UNIT/ML SUBCUT SCH (08:23)
[2020-11-17] MEDS: ASPIRIN CHEW 81 MG TABLET PO SCH (08:27)
[2020-11-17] MEDS: MIDAZOLAM 100 MG in SODIUM CHLORIDE 0.9% 80 ML IV PRN (08:32)
[2020-11-17] MEDS: METOCLOPRAMIDE 10 MG/2 ML VIAL IV SCH ×3 (11:55→23:57)
[2020-11-18] MEDS: methylPREDNISolone SOD SUC 40 MG/1 ML VIAL IV SCH ×2 (01:48→17:14)
[2020-11-18] MEDS: ALBUTEROL INHALER 18 GM INH SCH ×4 (01:49→20:56)
[2020-11-18 04:18] LABS: ABG Base Excess -2.5 MMOL/L (-2.5-2.5); ABG HCO3 22.3 MMOL/L (20-26); ABG Oxygen Saturation 98.1 % (95-100); ABG PCO2 35.4 MM HG (35-48); ABG PH 7.399 (7.35-7.45); ABG TCO2 20.5 MMOL/L (23-27)
[2020-11-18 05:24] LABS: Basophils % 0.1 % (0.0-0.8); Eosinophils % 0.1 % (0.00-10.9); Hemoglobin 7.6 GM/DL (12.0-16.0); Immature Granulocytes % 2.7 %; Immature Granulocytes Absolute 0.38 #; Lymphocytes # 0.7 10*3/uL (1.4-4.0); Mean Corpuscular HGB Conc 31.7 GM/DL (32-36); Mean Corpuscular Volume 94.1 FL (87-102); Mean Platelet Volume 9.8 FL (9.6-12.0); Neutrophils % 87.1 % (38.7-73.9); Platelet Count 342 T/CUMM (130-400); Red Blood Count 2.55 MC/CUMM (3.8-5.5); Red Cell Distribution Width 13.9 % (9.3-17.3); White Blood Count 13.9 T/CUMM (4-12)
[2020-11-18 05:31] LABS: Calcium 7.8 MG/DL (8.5-10.1); Osmolality,Calculated 301.2 MOS/KG (273-304); Potassium 4.4 MMOL/L (3.5-5.1)
[2020-11-18] MEDS: HEPARIN 5,000 UNIT/1 ML VIAL SUBCUT SCH ×3 (06:22→21:10)
[2020-11-18] MEDS: INSULIN REGULAR 100 UNIT/ML SUBCUT SCH ×3 (06:23→17:49)
[2020-11-18] MEDS: METOCLOPRAMIDE 10 MG/2 ML VIAL IV SCH ×3 (06:28→17:49)
[2020-11-18] MEDS: ASPIRIN CHEW 81 MG TABLET PO SCH (09:18)
[2020-11-18] MEDS: PANTOPRAZOLE 40 MG VIAL IV SCH (09:18)
[2020-11-18] MEDS: ASCORBIC ACID 500 MG TABLET PO SCH ×2 (09:18→20:03)
[2020-11-18] MEDS: CETIRIZINE 10 MG TABLET PO SCH (09:18)
[2020-11-18] MEDS: ZINC GLUCONATE 50 MG TABLET PO SCH (09:18)
[2020-11-18] MEDS: amLODIPine 5 MG TABLET PO SCH (09:18)
[2020-11-18] MEDS: INSULIN GLARGINE 100 UNIT/ML SUBCUT SCH (09:18)
[2020-11-18] MEDS: CHOLECALCIFEROL 1,000 UNIT TABLET PO SCH (09:18)
[2020-11-18] MEDS: fentaNYL INJ 5,000 MCG in SODIUM CHLORIDE 0.9% 150 ML IV PRN (16:30)
[2020-11-19] MEDS: INSULIN REGULAR 100 UNIT/ML SUBCUT SCH ×4 (00:16→18:22)
[2020-11-19] MEDS: METOCLOPRAMIDE 10 MG/2 ML VIAL IV SCH ×4 (00:16→18:20)
[2020-11-19] MEDS: ALBUTEROL INHALER 18 GM INH SCH ×4 (00:17→19:07)
[2020-11-19] MEDS: methylPREDNISolone SOD SUC 40 MG/1 ML VIAL IV SCH ×2 (01:34→15:50)
[2020-11-19 04:03] LABS: Basophils % 0.1 % (0.0-0.8); Eosinophils % 0.2 % (0.00-10.9); Hematocrit 20.7 VOL% (35.7-47.0); Immature Granulocytes Absolute 0.46 #; Lymphocytes # 0.9 10*3/uL (1.4-4.0); Lymphocytes % 7.5 % (21.3-54.2); Mean Corpuscular HGB Conc 31.9 GM/DL (32-36); Mean Platelet Volume 9.9 FL (9.6-12.0); Monocytes % 4.2 % (1.7-12.7); Platelet Count 346 T/CUMM (130-400); Red Blood Count 2.18 MC/CUMM (3.8-5.5); Red Cell Distribution Width 13.9 % (9.3-17.3); White Blood Count 11.5 T/CUMM (4-12)
[2020-11-19 04:13] LABS: Calcium 7.7 MG/DL (8.5-10.1); Osmolality,Calculated 308.7 MOS/KG (273-304); Potassium 4.9 MMOL/L (3.5-5.1)
[2020-11-19 04:17] LABS: Hemoglobin 6.6 GM/DL (12.0-16.0)
[2020-11-19 04:41] LABS: ABG HCO3 19.4 MMOL/L (20-26); ABG Oxygen Saturation 98.1 % (95-100); ABG PCO2 32.9 MM HG (35-48); ABG PH 7.389 (7.35-7.45); ABG PO2 129.1 MM HG (80-95); ABG TCO2 20.4 MMOL/L (23-27); Allen Test Positive; Pt O2 Delivery Device Ventilator
[2020-11-19] MEDS ORDERED: SODIUM CHLORIDE 0.9% 1,000 ML IV PRN (04:48)
[2020-11-19] MEDS: HEPARIN 5,000 UNIT/1 ML VIAL SUBCUT SCH ×3 (05:10→21:04)
[2020-11-19 05:48] LABS: Ferritin 422.5 ng/mL (8-252)
[2020-11-19] MEDS ORDERED: INSULIN GLARGINE 100 UNIT/ML SUBCUT SCH (09:00)
[2020-11-19] MEDS: CETIRIZINE 10 MG TABLET PO SCH (09:32)
[2020-11-19] MEDS: amLODIPine 5 MG TABLET PO SCH (09:32)
[2020-11-19] MEDS: ASPIRIN CHEW 81 MG TABLET PO SCH (09:32)
[2020-11-19] MEDS: CHOLECALCIFEROL 1,000 UNIT TABLET PO SCH (09:32)
[2020-11-19] MEDS: ASCORBIC ACID 500 MG TABLET PO SCH ×2 (09:32→21:04)
[2020-11-19] MEDS: ZINC GLUCONATE 50 MG TABLET PO SCH (09:32)
[2020-11-19] MEDS: PANTOPRAZOLE 40 MG VIAL IV SCH (09:35)
[2020-11-19] MEDS ORDERED: amLODIPine 5 MG TABLET PO ONE (11:05)
[2020-11-19] MEDS: fentaNYL INJ 5,000 MCG in SODIUM CHLORIDE 0.9% 150 ML IV PRN (15:20)
[2020-11-19 20:00] LABS: Hematocrit 26.4 VOL% (35.7-47.0)
[2020-11-19 20:09] LABS: Hemoglobin 8.3 GM/DL (12.0-16.0)
[2020-11-20] MEDS: INSULIN REGULAR 100 UNIT/ML SUBCUT SCH ×4 (00:34→17:58)
[2020-11-20] MEDS: METOCLOPRAMIDE 10 MG/2 ML VIAL IV SCH ×4 (00:34→17:58)
[2020-11-20] MEDS: ALBUTEROL INHALER 18 GM INH SCH ×4 (01:21→18:00)
[2020-11-20] MEDS: methylPREDNISolone SOD SUC 40 MG/1 ML VIAL IV SCH ×2 (01:21→14:26)
[2020-11-20 03:52] LABS: Basophils % 0.2 % (0.0-0.8); Eosinophils % 0.2 % (0.00-10.9); Hematocrit 29.3 VOL% (35.7-47.0); Hemoglobin 9.3 GM/DL (12.0-16.0); Immature Granulocytes % 4.5 %; Immature Granulocytes Absolute 0.57 #; Lymphocytes # 0.9 10*3/uL (1.4-4.0); Mean Corpuscular HGB Conc 31.7 GM/DL (32-36); Mean Corpuscular Volume 93.9 FL (87-102); Mean Platelet Volume 9.3 FL (9.6-12.0); Monocytes % 5.5 % (1.7-12.7); Neutrophils % 82.6 % (38.7-73.9); Platelet Count 350 T/CUMM (130-400); Red Blood Count 3.12 MC/CUMM (3.8-5.5); Red Cell Distribution Width 13.7 % (9.3-17.3); White Blood Count 12.6 T/CUMM (4-12)
[2020-11-20 04:15] LABS: Hypochromasia 1+; Lymphocytes 6 % (20-55); Microcytosis 1+; Platelet Estimate Adequate; Segmented Neutrophils 88 % (50-85); Total Cells Counted 100
[2020-11-20 04:23] LABS: Calcium 7.7 MG/DL (8.5-10.1); Osmolality,Calculated 311.9 MOS/KG (273-304); Potassium 5.3 MMOL/L (3.5-5.1)
[2020-11-20 05:03] LABS: ABG Base Excess -7.3 MMOL/L (-2.5-2.5); ABG HCO3 18.2 MMOL/L (20-26); ABG Oxygen Saturation 97.6 % (95-100); ABG PCO2 36.6 MM HG (35-48); ABG PH 7.315 (7.35-7.45); ABG PO2 133.1 MM HG (80-95); ABG TCO2 19.3 MMOL/L (23-27); Allen Test Positive; Pt O2 Delivery Device Ventilator
[2020-11-20] MEDS: HEPARIN 5,000 UNIT/1 ML VIAL SUBCUT SCH ×3 (06:03→21:01)
[2020-11-20] MEDS: ZINC GLUCONATE 50 MG TABLET PO SCH (08:38)
[2020-11-20] MEDS: CETIRIZINE 10 MG TABLET PO SCH (08:38)
[2020-11-20] MEDS: amLODIPine 10 MG TABLET PO SCH (08:38)
[2020-11-20] MEDS: ASCORBIC ACID 500 MG TABLET PO SCH ×2 (08:38→21:01)
[2020-11-20] MEDS: CHOLECALCIFEROL 1,000 UNIT TABLET PO SCH (08:38)
[2020-11-20] MEDS: ASPIRIN CHEW 81 MG TABLET PO SCH (08:38)
[2020-11-20] MEDS: INSULIN GLARGINE 100 UNIT/ML SUBCUT SCH (08:39)
[2020-11-20] MEDS: PANTOPRAZOLE 40 MG VIAL IV SCH (08:40)
[2020-11-20] MEDS: fentaNYL INJ 5,000 MCG in SODIUM CHLORIDE 0.9% 150 ML IV PRN (14:24)
[2020-11-20] MEDS: hydrALAZINE 20 MG/1 ML VIAL IV PRN (14:59)
[2020-11-21] MEDS: INSULIN REGULAR 100 UNIT/ML SUBCUT SCH ×4 (00:50→17:26)
[2020-11-21] MEDS: METOCLOPRAMIDE 10 MG/2 ML VIAL IV SCH ×4 (00:50→17:25)
[2020-11-21] MEDS: hydrALAZINE 20 MG/1 ML VIAL IV PRN ×2 (00:50→09:58)
[2020-11-21] MEDS: ALBUTEROL INHALER 18 GM INH SCH ×4 (00:52→18:25)
[2020-11-21 01:01] LABS: Basophils % 0.3 % (0.0-0.8); Eosinophils % 0.2 % (0.00-10.9); Hematocrit 31.9 VOL% (35.7-47.0); Hemoglobin 10.6 GM/DL (12.0-16.0); Immature Granulocytes Absolute 0.69 #; Lymphocytes # 1.2 10*3/uL (1.4-4.0); Lymphocytes % 8.9 % (21.3-54.2); Mean Corpuscular HGB Conc 33.2 GM/DL (32-36); Mean Corpuscular Volume 91.7 FL (87-102); Mean Platelet Volume 9.3 FL (9.6-12.0); Monocytes % 6.6 % (1.7-12.7); Platelet Count 407 T/CUMM (130-400); Red Blood Count 3.48 MC/CUMM (3.8-5.5); Red Cell Distribution Width 13.4 % (9.3-17.3); White Blood Count 13.8 T/CUMM (4-12)
[2020-11-21 01:26] LABS: Alanine Aminotransferase < 9 U/L (13-56); Alkaline Phosphatase 178 U/L (45-117); Aspartate Amino Transferase 12 U/L (0-37); Blood Urea Nitrogen 89 MG/DL (7-18); Carbon Dioxide 22 MMOL/L (21-32); Estimated Glom Filtration Rate 7 ML/MIN; Glucose 208 MG/DL (74-106); Osmolality,Calculated 296.5 MOS/KG (273-304); Potassium 4.4 MMOL/L (3.5-5.1); Sodium 132 MMOL/L (136-145); Total Protein 6.7 G/DL (6.4-8.2)
[2020-11-21 01:27] LABS: Band Neutrophils 2 % (0-10); Lymphocytes 11 % (20-55); Platelet Estimate Increased; Segmented Neutrophils 82 % (50-85); Total Cells Counted 100
[2020-11-21] MEDS: methylPREDNISolone SOD SUC 40 MG/1 ML VIAL IV SCH ×2 (01:54→13:24)
[2020-11-21 04:24] LABS: Allen Test Positive; Pt O2 Delivery Device Ventilator
[2020-11-21 04:32] LABS: ABG Base Excess -1.7 MMOL/L (-2.5-2.5); ABG Oxygen Saturation 98.9 % (95-100); ABG PCO2 34.8 MM HG (35-48); ABG PH 7.415 (7.35-7.45); ABG TCO2 20.3 MMOL/L (23-27)
[2020-11-21] MEDS: HEPARIN 5,000 UNIT/1 ML VIAL SUBCUT SCH ×3 (06:17→21:18)
[2020-11-21] MEDS: fentaNYL INJ 5,000 MCG in SODIUM CHLORIDE 0.9% 150 ML IV PRN ×2 (06:24→20:01)
[2020-11-21] MEDS: PANTOPRAZOLE 40 MG VIAL IV SCH (08:19)
[2020-11-21] MEDS: INSULIN GLARGINE 100 UNIT/ML SUBCUT SCH (08:19)
[2020-11-21] MEDS: ZINC GLUCONATE 50 MG TABLET PO SCH (08:19)
[2020-11-21] MEDS: CHOLECALCIFEROL 1,000 UNIT TABLET PO SCH (08:19)
[2020-11-21] MEDS: CETIRIZINE 10 MG TABLET PO SCH (08:19)
[2020-11-21] MEDS: amLODIPine 10 MG TABLET PO SCH (08:19)
[2020-11-21] MEDS: ASCORBIC ACID 500 MG TABLET PO SCH ×2 (08:19→21:18)
[2020-11-21] MEDS: ASPIRIN CHEW 81 MG TABLET PO SCH (08:19)
[2020-11-22] MEDS: INSULIN REGULAR 100 UNIT/ML SUBCUT SCH ×4 (00:41→17:16)
[2020-11-22] MEDS: ALBUTEROL INHALER 18 GM INH SCH ×4 (00:41→18:52)
[2020-11-22] MEDS: METOCLOPRAMIDE 10 MG/2 ML VIAL IV SCH ×4 (00:41→17:16)
[2020-11-22] MEDS: methylPREDNISolone SOD SUC 40 MG/1 ML VIAL IV SCH ×2 (02:40→14:41)
[2020-11-22 03:18] LABS: ABG HCO3 20.3 MMOL/L (20-26); ABG Oxygen Saturation 98.4 % (95-100); ABG PCO2 37.8 MM HG (35-48); ABG PH 7.339 (7.35-7.45); ABG TCO2 18.7 MMOL/L (23-27)
[2020-11-22 04:58] LABS: Basophils % 0.1 % (0.0-0.8); Eosinophils # 0.1 10*3/uL (0.0-0.87); Eosinophils % 0.7 % (0.00-10.9); Hematocrit 29.5 VOL% (35.7-47.0); Hemoglobin 9.5 GM/DL (12.0-16.0); Immature Granulocytes % 4.7 %; Immature Granulocytes Absolute 0.65 #; Lymphocytes # 0.9 10*3/uL (1.4-4.0); Lymphocytes % 6.2 % (21.3-54.2); Mean Corpuscular HGB Conc 32.2 GM/DL (32-36); Mean Corpuscular Volume 92.8 FL (87-102); Mean Platelet Volume 9.2 FL (9.6-12.0); Monocytes % 7.8 % (1.7-12.7); Neutrophils % 80.5 % (38.7-73.9); Platelet Count 346 T/CUMM (130-400); Red Blood Count 3.18 MC/CUMM (3.8-5.5); Red Cell Distribution Width 13.3 % (9.3-17.3); White Blood Count 13.8 T/CUMM (4-12)
[2020-11-22 05:12] LABS: Calcium 7.9 MG/DL (8.5-10.1); Osmolality,Calculated 299.9 MOS/KG (273-304); Potassium 4.8 MMOL/L (3.5-5.1)
[2020-11-22 05:20] LABS: Eosinophils 1 % (0-10); Lymphocytes 6 % (20-55); Segmented Neutrophils 81 % (50-85); Total Cells Counted 100
[2020-11-22 05:21] LABS: Hypochromasia 1+; Microcytosis 1+; Platelet Estimate Adequate
[2020-11-22] MEDS: HEPARIN 5,000 UNIT/1 ML VIAL SUBCUT SCH ×3 (06:16→21:26)
[2020-11-22] MEDS: INSULIN GLARGINE 100 UNIT/ML SUBCUT SCH (08:45)
[2020-11-22] MEDS: PANTOPRAZOLE 40 MG VIAL IV SCH (08:45)
[2020-11-22] MEDS: ZINC GLUCONATE 50 MG TABLET PO SCH (08:47)
[2020-11-22] MEDS: CHOLECALCIFEROL 1,000 UNIT TABLET PO SCH (08:47)
[2020-11-22] MEDS: ASPIRIN CHEW 81 MG TABLET PO SCH (08:47)
[2020-11-22] MEDS: CETIRIZINE 10 MG TABLET PO SCH (08:48)
[2020-11-22] MEDS: ASCORBIC ACID 500 MG TABLET PO SCH ×2 (08:48→21:01)
[2020-11-22] MEDS: amLODIPine 10 MG TABLET PO SCH (08:54)
[2020-11-22] MEDS: fentaNYL INJ 5,000 MCG in SODIUM CHLORIDE 0.9% 150 ML IV PRN ×2 (08:59→23:50)
[2020-11-23] MEDS: ALBUTEROL INHALER 18 GM INH SCH ×4 (00:14→19:50)
[2020-11-23] MEDS: INSULIN REGULAR 100 UNIT/ML SUBCUT SCH ×4 (00:14→17:27)
[2020-11-23] MEDS: METOCLOPRAMIDE 10 MG/2 ML VIAL IV SCH ×4 (01:56→17:24)
[2020-11-23] MEDS: methylPREDNISolone SOD SUC 40 MG/1 ML VIAL IV SCH ×2 (02:41→14:40)
[2020-11-23 03:56] LABS: ABG Base Excess -3.8 MMOL/L (-2.5-2.5); ABG HCO3 21.3 MMOL/L (20-26); ABG Oxygen Saturation 96.1 % (95-100); ABG PCO2 46.7 MM HG (35-48); ABG PO2 95.6 MM HG (80-95); ABG TCO2 20.4 MMOL/L (23-27)
[2020-11-23 04:46] LABS: Basophils # 0.1 10*3/uL (0.0-0.2); Basophils % 0.3 % (0.0-0.8); Eosinophils # 0.1 10*3/uL (0.0-0.87); Eosinophils % 0.6 % (0.00-10.9); Hematocrit 31.3 VOL% (35.7-47.0); Hemoglobin 10.2 GM/DL (12.0-16.0); Immature Granulocytes % 5.2 %; Immature Granulocytes Absolute 0.75 #; Lymphocytes # 1.7 10*3/uL (1.4-4.0); Lymphocytes % 11.8 % (21.3-54.2); Mean Corpuscular HGB Conc 32.6 GM/DL (32-36); Mean Corpuscular Volume 93.7 FL (87-102); Mean Platelet Volume 9.8 FL (9.6-12.0); Monocytes % 6.4 % (1.7-12.7); Neutrophils % 75.7 % (38.7-73.9); Platelet Count 407 T/CUMM (130-400); Red Blood Count 3.34 MC/CUMM (3.8-5.5); Red Cell Distribution Width 13.3 % (9.3-17.3); White Blood Count 14.5 T/CUMM (4-12)
[2020-11-23 05:02] VITALS: BP 175/77
[2020-11-23 05:20] LABS: Band Neutrophils 1 % (0-10); Hypochromasia Slight; Lymphocytes 8 % (20-55); Microcytosis Slight; Ovalocytes Slight; Platelet Estimate Adequate; Segmented Neutrophils 82 % (50-85); Total Cells Counted 100
[2020-11-23] MEDS: HEPARIN 5,000 UNIT/1 ML VIAL SUBCUT SCH ×3 (05:42→21:46)
[2020-11-23 05:47] LABS: Calcium 7.9 MG/DL (8.5-10.1); Osmolality,Calculated 289.7 MOS/KG (273-304); Potassium 4.6 MMOL/L (3.5-5.1)
[2020-11-23] MEDS: PANTOPRAZOLE 40 MG VIAL IV SCH (08:20)
[2020-11-23] MEDS: INSULIN GLARGINE 100 UNIT/ML SUBCUT SCH (08:24)
[2020-11-23] MEDS: ASCORBIC ACID 500 MG TABLET PO SCH ×2 (08:24→21:46)
[2020-11-23] MEDS: ASPIRIN CHEW 81 MG TABLET PO SCH (08:24)
[2020-11-23] MEDS: ZINC GLUCONATE 50 MG TABLET PO SCH (08:24)
[2020-11-23] MEDS: CHOLECALCIFEROL 1,000 UNIT TABLET PO SCH (08:24)
[2020-11-23] MEDS: CETIRIZINE 10 MG TABLET PO SCH (08:24)
[2020-11-23] MEDS: amLODIPine 10 MG TABLET PO SCH (08:24)
[2020-11-23] MEDS: TRIMETH IV SCH (10:39)
[2020-11-23] MEDS: DEXTROSE 5% IV SCH (10:39)
[2020-11-23] MEDS: SULFAMETH IV SCH (10:39)
[2020-11-23] MEDS: fentaNYL INJ 5,000 MCG in SODIUM CHLORIDE 0.9% 150 ML IV PRN (15:49)
[2020-11-24] MEDS: INSULIN REGULAR 100 UNIT/ML SUBCUT SCH ×3 (00:13→11:25)
[2020-11-24] MEDS: METOCLOPRAMIDE 10 MG/2 ML VIAL IV SCH ×3 (00:14→12:44)
[2020-11-24] MEDS: ALBUTEROL INHALER 18 GM INH SCH ×2 (00:29→06:45)
[2020-11-24] MEDS: methylPREDNISolone SOD SUC 40 MG/1 ML VIAL IV SCH (02:39)
[2020-11-24] MEDS: hydrALAZINE 20 MG/1 ML VIAL IV PRN (03:35)
[2020-11-24 03:39] LABS: ABG Base Excess -5.1 MMOL/L (-2.5-2.5); ABG HCO3 20.2 MMOL/L (20-26); ABG Oxygen Saturation 99.1 % (95-100); ABG PCO2 36.1 MM HG (35-48); ABG PH 7.351 (7.35-7.45); ABG TCO2 18.5 MMOL/L (23-27)
[2020-11-24] MEDS: HEPARIN 5,000 UNIT/1 ML VIAL SUBCUT SCH (05:11)
[2020-11-24 05:18] LABS: Basophils # 0.1 10*3/uL (0.0-0.2); Basophils % 0.3 % (0.0-0.8); Eosinophils # 0.2 10*3/uL (0.0-0.87); Eosinophils % 0.9 % (0.00-10.9); Hematocrit 29.5 VOL% (35.7-47.0); Hemoglobin 9.7 GM/DL (12.0-16.0); Immature Granulocytes % 3.4 %; Immature Granulocytes Absolute 0.63 #; Lymphocytes # 2.9 10*3/uL (1.4-4.0); Mean Corpuscular HGB Conc 32.9 GM/DL (32-36); Mean Corpuscular Volume 93.1 FL (87-102); Mean Platelet Volume 9.6 FL (9.6-12.0); Monocytes % 4.6 % (1.7-12.7); Neutrophils % 74.8 % (38.7-73.9); Platelet Count 352 T/CUMM (130-400); Red Blood Count 3.17 MC/CUMM (3.8-5.5); Red Cell Distribution Width 13.5 % (9.3-17.3); White Blood Count 18.3 T/CUMM (4-12)
[2020-11-24 05:44] LABS: Eosinophils 1 % (0-10); Hypochromasia 1+; Lymphocytes 11 % (20-55); Microcytosis 1+; Platelet Estimate Adequate; Segmented Neutrophils 82 % (50-85); Total Cells Counted 100
[2020-11-24 05:50] LABS: Calcium 7.9 MG/DL (8.5-10.1); Osmolality,Calculated 284.5 MOS/KG (273-304); Potassium 4.9 MMOL/L (3.5-5.1)
[2020-11-24] MEDS: PANTOPRAZOLE 40 MG VIAL IV SCH (08:42)
[2020-11-24] MEDS: INSULIN GLARGINE 100 UNIT/ML SUBCUT SCH (08:42)
[2020-11-24] MEDS: ASPIRIN CHEW 81 MG TABLET PO SCH (08:42)
[2020-11-24] MEDS: amLODIPine 10 MG TABLET PO SCH (08:42)
[2020-11-24] MEDS: CETIRIZINE 10 MG TABLET PO SCH (08:43)
[2020-11-24] MEDS: ZINC GLUCONATE 50 MG TABLET PO SCH (08:43)
[2020-11-24] MEDS: CHOLECALCIFEROL 1,000 UNIT TABLET PO SCH (08:43)
[2020-11-24] MEDS: ASCORBIC ACID 500 MG TABLET PO SCH (08:43)
[2020-11-24] MEDS: TRIMETH IV SCH (11:45)
[2020-11-24] MEDS: SULFAMETH IV SCH (11:45)
[2020-11-24] MEDS: DEXTROSE 5% IV SCH (11:45)
== END 2020-11-24 12:10 | DRG 5 ==
LOC: EDUNIT# → EDBD → N.ED 16:13 → N.EDINP 18:53 → SUATTDRO 18:53 → N.2E 10-30 14:42 → N.EDINP 10-31 13:04 → N.CC 10-31 13:08
PROVIDERS: ADMIT Internal Medicine; ATTEND Internal Medicine
PROC: EGDWPEG (ICD-10-PCS; 2020-11-15 07:35)